=== PATIENT | female | born 1975 | race Caucasian/White ===

== ENCOUNTER 2018-12-30 22:37 | Inpatient (IN) | payer MEDICAID ==
[~2018-12-30] VITALS: Ht 170.2 cm; Wt 100.0 kg
[2018-12-30] MEDS ORDERED: BUME1TAB8 PO (23:15)
[2018-12-30] MEDS ORDERED: ALBU18HF2 INH (23:15)
[2018-12-30] MEDS ORDERED: POTA10CA44 PO (23:15)
[2018-12-30] MEDS ORDERED: ASPI81TA52 PO (23:15)
[2018-12-30] MEDS ORDERED: AMOX-580 PO (23:15)
[2018-12-30] MEDS ORDERED: GLIM4TAB PO (23:15)
[2018-12-30] MEDS ORDERED: ATOR80TA PO (23:15)
[2018-12-30] MEDS ORDERED: CLOP75TA35 PO (23:15)
[2018-12-30] MEDS ORDERED: HYDR-3965 PO (23:15)
[2018-12-30] MEDS ORDERED: LOSA25TA96 PO (23:15)
[2018-12-30] MEDS ORDERED: CARV-50 PO (23:15)
[2018-12-30] MEDS ORDERED: FURO-150 PO (23:15)
[2018-12-30] MEDS ORDERED: ISOS30TA9 PO (23:15)
[2018-12-30] MEDS ORDERED: OLAN2.5T3 PO (23:15)
[2018-12-30] MEDS ORDERED: DULO20CA50 PO (23:15)
[2018-12-30] MEDS ORDERED: normal saline 1000ML IV soln IVB ONE (23:25)
--- NOTE | 2018-12-30 23:35 | NUR ---
Dr Henderson stated pt could eat and drink and so she is eating a sandwiche now and really enjoying it
[2018-12-30] MEDS ORDERED: acetaminophen 325mg tablet PO PRN (23:55)
[2018-12-30] MEDS ORDERED: mag hydrox/Alum hydrox/simeth 30ml oral suspension PO PRN (23:55)
[2018-12-30] MEDS ORDERED: magnesium hydroxide 30ml (MOM) UD suspension PO PRN (23:55)
[2018-12-30] MEDS ORDERED: normal saline 1000ml 1,000 ML IV SCH (23:55)
[2018-12-30] MEDS ORDERED: morphine 2 MG/ML inj. syringe IV PRN ×2 (23:55)
[2018-12-30 23:57] LABS: PARTIAL THROMBOPLASTIN TIME 28 SECONDS (22-32)
[2018-12-30 23:59] LABS: ALANINE AMINOTRANSFERASE 36 U/L (12-78); ALBUMIN 1.6 G/DL (3.4-5.0); ALBUMIN/GLOBULIN RATIO 0.4 (1.1-1.5); ALKALINE PHOSPHATASE 118 IU/L (46-116); ANION GAP 14 (8-16); ASPARTATE AMINO TRANSFERASE 23 U/L (10-37); BILIRUBIN,TOTAL 0.2 MG/DL (0.1-1.0); BLOOD UREA NITROGEN 129 MG/DL (7-18); BUN/CREATININE RATIO 33.1 (6.6-38.0); CALCIUM 7.7 MG/DL (8.5-10.1); CHLORIDE 110 MMOL/L (99-107); GLUCOSE 106 MG/DL (70-104); POTASSIUM 5.2 MMOL/L (3.5-5.1); SODIUM 142 MMOL/L (135-145); TOTAL CARBON DIOXIDE 17.6 MMOL/L (24-32); TOTAL PROTEIN 5.4 G/DL (6.4-8.2); eGFR 12 ML/MIN
[2018-12-31] LABS: HEMATOCRIT 25.9 % (35.0-45.0); HEMOGLOBIN 8.8 g/dl (12.0-16.0); MEAN CORPUSCULAR VOLUME 88.4 FL (78-98); RED BLOOD COUNT 2.93 X10'6 (4.20-5.60); WHITE BLOOD COUNT 9.7 X10'3 (4.5-11.0)
[2018-12-31 00:02] LABS: BASOPHILS # (AUTO) 0.1 X10'3 (0-0.2); BASOPHILS % (AUTO) 1.1 % (0-1); EOSINOPHILS # (AUTO) 0.2 X10'3 (0-0.9); EOSINOPHILS % (AUTO) 2.3 % (0-6); LYMPHOCYTES # (AUTO) 1.8 X10'3 (1.1-4.8); LYMPHOCYTES % (AUTO) 18.5 % (21-51); MEAN CORPUSCULAR HEMOGLOBIN 30.1 PG (27.0-31.0); MEAN CORPUSCULAR HGB CONC 34.1 g/dL (33.0-36.5); MONOCYTES # (AUTO) 1.3 X10'3 (0-0.9); MONOCYTES % (AUTO) 13.5 % (2-12); NEUTROPHILS # (AUTO) 6.2 X10'3 (1.8-7.7); NEUTROPHILS % (AUTO) 64.6 % (42-75); PLATELET COUNT 459 X10'3 (140-440); RED CELL DISTRIBUTION WIDTH 13.7 % (11.5-14.5)
[2018-12-31] MEDS ORDERED: GABA800T11 PO (00:38)
[2018-12-31] MEDS ORDERED: ISOS30TA6 PO (00:38)
[2018-12-31] MEDS ORDERED: POTA-82 PO (00:39)
--- NOTE | 2018-12-31 01:20 | NUR ---
I have received report from Jeanne BROOKE RN and had the opportunity to ask questions. Awaiting pt arrival
[2018-12-31 01:26] LABS: TOTAL CELLS COUNTED 100
[2018-12-31 01:27] LABS: PLATELET ESTIMATE INCREASED
[2018-12-31 02:00] VITALS: BP 167/87
[2018-12-31 02:06] LABS: CLARITY,URINE SLIGHTLY CLOUDY (Clear); COLOR,URINE YELLOW (Yellow); GLUCOSE, URINE NEGATIVE (Neg); KETONES,URINE NEGATIVE (Neg); LEUKOCYTE ESTERASE ,URINE TRACE (Neg); NITRITES, URINE NEGATIVE (Neg); OCCULT BLOOD,URINE LARGE (Neg); PH,URINE 7.5 (4.8-8.0); PROTEIN,URINE >=300 mg/dl (Neg); UROBILINOGEN,URINE 0.2 E.U/dL (0.2-1.0)
[2018-12-31 02:11] LABS: UA COLLECTION TYPE FOLEY CATH
[2018-12-31 02:35] LABS: BACTERIA,URINE FEW /HPF (Neg); MUCUS STRANDS NONE SEEN /LPF (Neg); SQUAMOUS EPITHELIAL CELL,UR NONE SEEN /LPF (FEW); WBC,URINE 20-30 /HPF (0-4)
--- NOTE | 2018-12-31 03:12 | NUR ---
Dr. Keane called. Hyperglycemic/hypoglycemic protocol ordered. Informed MD about . new orders given. will continue to monitor.
[2018-12-31] MEDS ORDERED: dextrose 50%-water 50ml dispensing syringe IV PRN ×2 (03:25)
[2018-12-31] MEDS ORDERED: dextrose ORAL solution 15 GM/59 ML bottle PO PRN ×2 (03:25)
[2018-12-31] MEDS ORDERED: glucagon, human recombinant 1mg kit SUBCUT PRN (03:25)
[2018-12-31] MEDS ORDERED: MESSAGE TO PHARMACY PO ONE (03:25)
[2018-12-31] MEDS ORDERED: furosemide 20 MG/2 ML vial IV SCH (03:30)
[2018-12-31] MEDS: HYDROcodone/acetaminophen 10/325mg tab PO PRN ×3 (03:51→21:55)
[2018-12-31] MEDS ORDERED: OLANZapine 2.5MG tablet PO PRN (05:20)
[2018-12-31] MEDS ORDERED: HYDROcodone/acetaminophen 5mg/325mg tablet PO PRN (05:20)
[2018-12-31] MEDS ORDERED: albuterol 2.5 MG/3 ML nebule NEB PRN (05:20)
[2018-12-31] MEDS: normal saline 1000ml 1,000 ML IV SCH ×3 (05:32→22:43)
--- NOTE | 2018-12-31 05:34 | NUR ---
Dr. Keane rounded on the pt and verbalized new orders. will continue to monitor
[2018-12-31 05:40] LABS: BASOPHILS # (AUTO) 0.1 X10'3 (0-0.2); BASOPHILS % (AUTO) 1.3 % (0-1); EOSINOPHILS # (AUTO) 0.3 X10'3 (0-0.9); EOSINOPHILS % (AUTO) 2.9 % (0-6); HEMATOCRIT 23.9 % (35.0-45.0); HEMOGLOBIN 7.9 g/dl (12.0-16.0); LYMPHOCYTES # (AUTO) 1.6 X10'3 (1.1-4.8); LYMPHOCYTES % (AUTO) 17.5 % (21-51); MEAN CORPUSCULAR HEMOGLOBIN 29.8 PG (27.0-31.0); MEAN CORPUSCULAR HGB CONC 33.3 g/dL (33.0-36.5); MEAN CORPUSCULAR VOLUME 89.6 FL (78-98); MEAN PLATELET VOLUME 7.3 FL (7.4-10.4); MONOCYTES # (AUTO) 1.7 X10'3 (0-0.9); MONOCYTES % (AUTO) 18.5 % (2-12); NEUTROPHILS # (AUTO) 5.4 X10'3 (1.8-7.7); NEUTROPHILS % (AUTO) 59.8 % (42-75); PLATELET COUNT 436 X10'3 (140-440); RED BLOOD COUNT 2.67 X10'6 (4.20-5.60); WHITE BLOOD COUNT 9.1 X10'3 (4.5-11.0)
[2018-12-31 05:49] LABS: ALBUMIN 1.5 G/DL (3.4-5.0); ANION GAP 15 (8-16); BLOOD UREA NITROGEN 135 MG/DL (7-18); BUN/CREATININE RATIO 33.4 (6.6-38.0); CALCIUM 7.8 MG/DL (8.5-10.1); CHLORIDE 111 MMOL/L (99-107); CREATININE 4.04 MG/DL (0.40-0.90); GLUCOSE 177 MG/DL (70-104); SODIUM 142 MMOL/L (135-145); TOTAL CARBON DIOXIDE 15.9 MMOL/L (24-32); eGFR 12 ML/MIN
--- NOTE | 2018-12-31 06:20 | NUR ---
Problems reprioritized. Patient report given, questions answered & plan of care reviewed with Sera BENSON.
--- NOTE | 2018-12-31 06:56 | NUR ---
Patient in room [facility]. I have received report from Maria Luz BENSON and had the opportunity to ask questions and assume patient care.
[2018-12-31] MEDS: losartan 25mg tablet PO SCH (07:47)
[2018-12-31] MEDS: carVEDilol 12.5mg tablet PO SCH ×2 (07:47→21:43)
[2018-12-31] MEDS: duloxetine 20mg capsule.DR PO SCH (07:48)
[2018-12-31] MEDS: aspirin 81mg tablet.DR PO SCH (07:48)
[2018-12-31] MEDS: isosorbide mononitrate 30mg tab.SR.24H PO SCH (07:48)
[2018-12-31] MEDS: clopidogrel 75mg tablet PO SCH (07:48)
[2018-12-31] MEDS: heparin, porcine 5000 units/ml vial SQ SCH ×2 (07:50→21:46)
[2018-12-31 08:00] VITALS: BP_SYST 136; BP_SYST 139; BP_SYST 141; BP_DIAS 65; BP_DIAS 75; BP_DIAS 76
[2018-12-31] MEDS ORDERED: gabapentin 400mg capsule PO SCH (08:00)
[2018-12-31] MEDS: ondansetron/PF 4mg/2ml inj IV PRN (08:51)
[2018-12-31 11:00] VITALS: BP 141/76
[2018-12-31 11:28] LABS: CLARITY,URINE SLIGHTLY CLOUDY (Clear); COLOR,URINE YELLOW (Yellow); GLUCOSE, URINE NEGATIVE (Neg); KETONES,URINE NEGATIVE (Neg); LEUKOCYTE ESTERASE ,URINE TRACE (Neg); NITRITES, URINE NEGATIVE (Neg); OCCULT BLOOD,URINE LARGE (Neg); PROTEIN,URINE >=300 mg/dl (Neg); UROBILINOGEN,URINE 0.2 E.U/dL (0.2-1.0)
[2018-12-31 11:29] LABS: UA COLLECTION TYPE FOLEY CATH
[2018-12-31 11:38] LABS: WBC,URINE TNTC /HPF (0-4)
[2018-12-31 11:42] LABS: BACTERIA,URINE 2+ /HPF (Neg); MUCUS STRANDS NONE SEEN /LPF (Neg); SQUAMOUS EPITHELIAL CELL,UR FEW /LPF (FEW)
[2018-12-31 11:43] LABS: CELLULAR CAST 0-4 /LPF (NEGATIVE)
[2018-12-31 12:05] LABS: UA EOSINOPHILS FEW EOS /HPF
[2018-12-31 12:13] LABS: TOTAL PROTEIN,URINE RANDOM 2183.6 MG/DL
[2018-12-31] MEDS: acetaminophen 325mg tablet PO PRN ×2 (12:24→23:58)
--- NOTE | 2018-12-31 15:04 | NUR ---
DM Consult: Pt admit w/ acute renal failure, proteinuria, volume depletion hx nausea/vomiting prior to admit. Noted to have nausea today. Likely DM nephropathy per MD note; A1C 7.4. Will need DM ed once stable prior to d/c. Addendum: 12/31/18 at [address] Amended: Links added.
[2018-12-31] MEDS: gabapentin 100mg capsule PO SCH ×2 (15:48→23:53)
[2018-12-31] MEDS: HYDROcodone/acetaminophen 5mg/325mg tablet PO PRN (17:59)
--- NOTE | 2018-12-31 18:30 | NUR ---
Patient in room [facility]. I have received report from EVY and had the opportunity to ask questions and assume patient care.
--- NOTE | 2018-12-31 18:35 | NUR ---
Problems reprioritized. Patient report given, questions answered & plan of care reviewed with Rosemarie BENSON.
[2018-12-31] MEDS: insulin Lispro (HumaLOG) vial - multi-dose SQ SCH (18:59)
[2018-12-31 19:15] VITALS: BP 155/83
[2018-12-31] MEDS: insulin glargine (Lantus) pen - multi-dose SQ SCH (21:34)
[2018-12-31] MEDS: atorvastatin 20mg tablet PO SCH (21:44)
[2019-01-01] VITALS: BP 122/66
[2019-01-01] MEDS: HYDROcodone/acetaminophen 10/325mg tab PO PRN ×2 (04:27→21:45)
[2019-01-01 06:34] LABS: BASOPHILS # (AUTO) 0.1 X10'3 (0-0.2); BASOPHILS % (AUTO) 1.2 % (0-1); EOSINOPHILS # (AUTO) 0.4 X10'3 (0-0.9); EOSINOPHILS % (AUTO) 3.7 % (0-6); HEMATOCRIT 24.7 % (35.0-45.0); HEMOGLOBIN 8.4 g/dl (12.0-16.0); LYMPHOCYTES # (AUTO) 1.9 X10'3 (1.1-4.8); LYMPHOCYTES % (AUTO) 19.8 % (21-51); MEAN CORPUSCULAR HEMOGLOBIN 30.3 PG (27.0-31.0); MEAN CORPUSCULAR HGB CONC 33.9 g/dL (33.0-36.5); MEAN CORPUSCULAR VOLUME 89.5 FL (78-98); MEAN PLATELET VOLUME 7.2 FL (7.4-10.4); MONOCYTES # (AUTO) 2.1 X10'3 (0-0.9); MONOCYTES % (AUTO) 22.6 % (2-12); NEUTROPHILS % (AUTO) 52.7 % (42-75); PLATELET COUNT 462 X10'3 (140-440); RED BLOOD COUNT 2.76 X10'6 (4.20-5.60); RED CELL DISTRIBUTION WIDTH 14.2 % (11.5-14.5); WHITE BLOOD COUNT 9.5 X10'3 (4.5-11.0)
--- NOTE | 2019-01-01 06:38 | NUR ---
Problems reprioritized. Patient report given, questions answered & plan of care reviewed with CELESTE.
[2019-01-01 06:40] LABS: ALBUMIN 1.6 G/DL (3.4-5.0); ANION GAP 13 (8-16); BLOOD UREA NITROGEN 130 MG/DL (7-18); BUN/CREATININE RATIO 29.7 (6.6-38.0); CALCIUM 8.1 MG/DL (8.5-10.1); CHLORIDE 111 MMOL/L (99-107); CREATININE 4.38 MG/DL (0.40-0.90); GLUCOSE 100 MG/DL (70-104); POTASSIUM 5.4 MMOL/L (3.5-5.1); SODIUM 141 MMOL/L (135-145); TOTAL CARBON DIOXIDE 16.8 MMOL/L (24-32); eGFR 11 ML/MIN
--- NOTE | 2019-01-01 06:57 | NUR ---
Patient in room [facility]. I have received report from Naomi BENSON and had the opportunity to ask questions and assume patient care.
[2019-01-01] MEDS: clopidogrel 75mg tablet PO SCH (07:23)
[2019-01-01] MEDS: duloxetine 20mg capsule.DR PO SCH (07:23)
[2019-01-01] MEDS: isosorbide mononitrate 30mg tab.SR.24H PO SCH (07:23)
[2019-01-01] MEDS: aspirin 81mg tablet.DR PO SCH (07:23)
[2019-01-01] MEDS: gabapentin 100mg capsule PO SCH ×2 (07:24→16:40)
[2019-01-01] MEDS: heparin, porcine 5000 units/ml vial SQ SCH ×2 (07:24→21:39)
[2019-01-01] MEDS: losartan 25mg tablet PO SCH (07:24)
[2019-01-01] MEDS: carVEDilol 12.5mg tablet PO SCH ×2 (07:24→21:38)
[2019-01-01] MEDS: acetaminophen 325mg tablet PO PRN (07:36)
[2019-01-01 08:00] VITALS: BP_SYST 112; BP_SYST 139; BP_SYST 154; BP_DIAS 50; BP_DIAS 77; BP_DIAS 83
[2019-01-01] MEDS ORDERED: sodium polystyrene sulfonate 15gm/60ml oral suspension PO ONE ×2 (08:00→10:15)
[2019-01-01] MEDS: insulin Lispro (HumaLOG) vial - multi-dose SQ SCH ×3 (08:45→18:33)
[2019-01-01 09:22] LABS: PLATELET ESTIMATE INCREASED; TOTAL CELLS COUNTED 100; TOXIC VACUOLATION 1+
[2019-01-01] MEDS: normal saline 1000ml 1,000 ML IV SCH ×2 (10:30→23:00)
[2019-01-01 11:00] VITALS: BP 113/61
[2019-01-01] MEDS: ondansetron/PF 4mg/2ml inj IV PRN (12:01)
--- NOTE | 2019-01-01 15:05 | NUR ---
F/u: Pt seen by CAMDEN for written/verbal DM ed w/ RD contact information provided. Pt declined verbal ed review. Addendum: 01/01/19 at [address] Amended: Links added.
[2019-01-01 18:00] VITALS: BP 174/90
--- NOTE | 2019-01-01 18:26 | NUR ---
Problems reprioritized. Patient report given, questions answered & plan of care reviewed with Shaq BENSON.
--- NOTE | 2019-01-01 18:27 | NUR ---
Patient in room [facility]. I have received report from KELLEY Zamora and had the opportunity to ask questions and assume patient care.
[2019-01-01 20:00] VITALS: BP_SYST 153; BP_SYST 161; BP_SYST 172; BP_DIAS 80; BP_DIAS 81; BP_DIAS 84
[2019-01-01] MEDS: atorvastatin 20mg tablet PO SCH (21:39)
[2019-01-01] MEDS: insulin glargine (Lantus) pen - multi-dose SQ SCH (21:44)
[2019-01-02] VITALS (7 sets, daily range): BP systolic 128–172; BP diastolic 57–90
[2019-01-02] MEDS: acetaminophen 325mg tablet PO PRN ×2 (01:06→15:28)
[2019-01-02 04:59] LABS: BASOPHILS # (AUTO) 0.1 X10'3 (0-0.2); BASOPHILS % (AUTO) 1.3 % (0-1); EOSINOPHILS # (AUTO) 0.3 X10'3 (0-0.9); EOSINOPHILS % (AUTO) 4.1 % (0-6); HEMOGLOBIN 7.1 g/dl (12.0-16.0); LYMPHOCYTES # (AUTO) 1.7 X10'3 (1.1-4.8); MEAN CORPUSCULAR HEMOGLOBIN 30.1 PG (27.0-31.0); MEAN CORPUSCULAR HGB CONC 33.8 g/dL (33.0-36.5); MEAN PLATELET VOLUME 7.3 FL (7.4-10.4); MONOCYTES # (AUTO) 1.4 X10'3 (0-0.9); MONOCYTES % (AUTO) 19.1 % (2-12); NEUTROPHILS # (AUTO) 3.7 X10'3 (1.8-7.7); NEUTROPHILS % (AUTO) 51.5 % (42-75); PLATELET COUNT 398 X10'3 (140-440); RED BLOOD COUNT 2.37 X10'6 (4.20-5.60); RED CELL DISTRIBUTION WIDTH 14.2 % (11.5-14.5); WHITE BLOOD COUNT 7.2 X10'3 (4.5-11.0)
[2019-01-02 05:04] LABS: ALBUMIN 1.3 G/DL (3.4-5.0); ANION GAP 14 (8-16); BLOOD UREA NITROGEN 128 MG/DL (7-18); BUN/CREATININE RATIO 26.9 (6.6-38.0); CALCIUM 7.2 MG/DL (8.5-10.1); CHLORIDE 113 MMOL/L (99-107); CREATININE 4.75 MG/DL (0.40-0.90); GLUCOSE 135 MG/DL (70-104); SODIUM 143 MMOL/L (135-145); TOTAL CARBON DIOXIDE 15.7 MMOL/L (24-32); eGFR 10 ML/MIN
[2019-01-02 05:07] LABS: HEMATOCRIT 21.1 % (35.0-45.0)
--- NOTE | 2019-01-02 06:07 | NUR ---
Problems reprioritized. Patient report given, questions answered & plan of care reviewed with KELELY Garnett.
--- NOTE | 2019-01-02 06:15 | NUR ---
Patient in room [facility]. I have received report from and had the opportunity to ask questions and assume patient care. Addendum: 01/02/19 at 0640 by Mariola Soares RN From KELLEY New
[2019-01-02 07:07] LABS: PLATELET ESTIMATE NORMAL; TOTAL CELLS COUNTED 100
[2019-01-02] MEDS: normal saline 1000ml 1,000 ML IV SCH ×2 (07:56→17:33)
[2019-01-02] MEDS: carVEDilol 12.5mg tablet PO SCH ×2 (07:58→20:27)
[2019-01-02] MEDS: duloxetine 20mg capsule.DR PO SCH (07:58)
[2019-01-02] MEDS: gabapentin 100mg capsule PO SCH ×3 (07:58→15:26)
[2019-01-02] MEDS: isosorbide mononitrate 30mg tab.SR.24H PO SCH (07:58)
[2019-01-02] MEDS: clopidogrel 75mg tablet PO SCH (07:58)
[2019-01-02] MEDS: aspirin 81mg tablet.DR PO SCH (07:58)
[2019-01-02] MEDS: heparin, porcine 5000 units/ml vial SQ SCH ×2 (07:59→20:28)
[2019-01-02] MEDS: HYDROcodone/acetaminophen 5mg/325mg tablet PO PRN (08:03)
[2019-01-02] MEDS: insulin Lispro (HumaLOG) vial - multi-dose SQ SCH ×3 (08:51→18:54)
[2019-01-02] MEDS: clindamycin 300mg/D5W 50mL 50 ML IV SCH ×2 (13:40→20:24)
--- NOTE | 2019-01-02 18:21 | NUR ---
Problems reprioritized. Patient report given, questions answered & plan of care reviewed with KELLEY New.
--- NOTE | 2019-01-02 18:22 | NUR ---
Patient in room [facility]. I have received report from KELLEY Garnett and had the opportunity to ask questions and assume patient care.
[2019-01-02] MEDS: atorvastatin 20mg tablet PO SCH (20:26)
[2019-01-02] MEDS: insulin glargine (Lantus) pen - multi-dose SQ SCH (20:37)
[2019-01-02] MEDS: HYDROcodone/acetaminophen 10/325mg tab PO PRN (22:25)
[2019-01-03 00:24] VITALS: BP 133/69
[2019-01-03] MEDS: clindamycin 300mg/D5W 50mL 50 ML IV SCH ×4 (01:08→21:06)
[2019-01-03] MEDS: ondansetron/PF 4mg/2ml inj IV PRN (01:08)
[2019-01-03] MEDS: normal saline 1000ml 1,000 ML IV SCH ×2 (04:00→15:22)
[2019-01-03 05:01] LABS: BASOPHILS # (AUTO) 0.1 X10'3 (0-0.2); BASOPHILS % (AUTO) 1.3 % (0-1); EOSINOPHILS # (AUTO) 0.4 X10'3 (0-0.9); HEMATOCRIT 22.3 % (35.0-45.0); HEMOGLOBIN 7.4 g/dl (12.0-16.0); LYMPHOCYTES # (AUTO) 1.7 X10'3 (1.1-4.8); LYMPHOCYTES % (AUTO) 23.8 % (21-51); MEAN CORPUSCULAR HEMOGLOBIN 29.7 PG (27.0-31.0); MEAN CORPUSCULAR HGB CONC 33.2 g/dL (33.0-36.5); MEAN CORPUSCULAR VOLUME 89.4 FL (78-98); MEAN PLATELET VOLUME 7.2 FL (7.4-10.4); MONOCYTES # (AUTO) 1.5 X10'3 (0-0.9); NEUTROPHILS # (AUTO) 3.5 X10'3 (1.8-7.7); NEUTROPHILS % (AUTO) 48.9 % (42-75); PLATELET COUNT 416 X10'3 (140-440); RED BLOOD COUNT 2.49 X10'6 (4.20-5.60); RED CELL DISTRIBUTION WIDTH 14.1 % (11.5-14.5); WHITE BLOOD COUNT 7.1 X10'3 (4.5-11.0)
[2019-01-03 05:24] LABS: ALBUMIN 1.2 G/DL (3.4-5.0); ANION GAP 14 (8-16); BLOOD UREA NITROGEN 120 MG/DL (7-18); CALCIUM 7.4 MG/DL (8.5-10.1); CHLORIDE 113 MMOL/L (99-107); CREATININE 4.44 MG/DL (0.40-0.90); GLUCOSE 86 MG/DL (70-104); POTASSIUM 5.1 MMOL/L (3.5-5.1); SODIUM 142 MMOL/L (135-145); TOTAL CARBON DIOXIDE 15.1 MMOL/L (24-32); eGFR 11 ML/MIN
--- NOTE | 2019-01-03 06:00 | NUR ---
Patient in room [facility]. I have received report from DUTCH BENSON and had the opportunity to ask questions and assume patient care.
--- NOTE | 2019-01-03 06:25 | NUR ---
Problems reprioritized. Patient report given, questions answered & plan of care reviewed with KELLEY Lisa.
[2019-01-03 06:53] LABS: TOTAL CELLS COUNTED 100
[2019-01-03 06:54] LABS: PLATELET ESTIMATE NORMAL; POLYCHROMASIA FEW
[2019-01-03 07:00] VITALS: BP 116/62
[2019-01-03] MEDS: carVEDilol 12.5mg tablet PO SCH ×2 (07:54→20:08)
[2019-01-03] MEDS: aspirin 81mg tablet.DR PO SCH (07:54)
[2019-01-03] MEDS: duloxetine 20mg capsule.DR PO SCH (07:54)
[2019-01-03] MEDS: isosorbide mononitrate 30mg tab.SR.24H PO SCH (07:55)
[2019-01-03] MEDS: gabapentin 100mg capsule PO SCH ×3 (07:55→16:00)
[2019-01-03] MEDS: clopidogrel 75mg tablet PO SCH (07:55)
[2019-01-03] MEDS: heparin, porcine 5000 units/ml vial SQ SCH ×2 (07:56→20:08)
--- NOTE | 2019-01-03 08:00 | NUR ---
PT REFUSED DOING HER ORTHOSTATIC VITALS THIS MORNING. PT DOES NOT WANT TO DO IT.
[2019-01-03] MEDS: acetaminophen 325mg tablet PO PRN ×2 (09:11→17:44)
[2019-01-03 11:00] VITALS: BP 161/84
--- NOTE | 2019-01-03 13:19 | NUR ---
DIABETIC FOOT CARE EDUCATION PROVIDED BY WOUND CARE * Wash your feet daily with lukewarm water and soap. * Dry your feet well, especially between the toes. * Keep the skin moisturized with lotion, but do not apply it between the toes. * Check your feet for blisters, cuts or sores. * Use an emery board to shape your toenails even with the ends of your toes. * Change daily into clean, soft socks or stockings, not too big or too small. * Keep your feet warm and dry. * Preferably wear special padded socks and shoes that fit well. * Never walk barefoot indoors or outdoors. * Examine your shoes everyday for cracks, susan, nails or anything that could hurt your feet. * Tell your doctor if you find any of these problems or have any concerns after examining your feet. Addendum: 01/03/19 at 1319 by Parris Reyes RN Amended: Links added.
--- NOTE | 2019-01-03 14:45 | NUR ---
PT VOMITED AFTER LUNCH TODAY. NOT MEASURABLE IT WAS ALL OVER HER AND HER BEDDING
--- NOTE | 2019-01-03 15:44 | NUR ---
Wound care provided to right heel per wound care orders. Pt tolerated the procedure. Minimal bloody drainage noted upon removal of old dressing. Will continue to monitor.
--- NOTE | 2019-01-03 16:49 | NUR ---
Student Medication Administration: For this medication-pass time frame, all medication were reviewed, dispensed, administered and documented per hospital policy by Amparo Student Nurse.
--- NOTE | 2019-01-03 17:21 | NUR ---
PT HAS AN OCCULT STOOL ORDERED SINCE 01-02. SHE HAD NOT HAD A BM ON MY SHIFT. UNABLE TO COLLECT
--- NOTE | 2019-01-03 17:50 | NUR ---
WOUND CARE DONE ON RIGHT HEEL
--- NOTE | 2019-01-03 17:53 | NUR ---
Student documentation: I have reviewed interventions, assessments performed and documented by Amparo Student Nurse.
[2019-01-03 18:00] VITALS: BP 171/88
--- NOTE | 2019-01-03 18:07 | NUR ---
Problems reprioritized. Patient report given, questions answered & plan of care reviewed with PRUDENCE RN.
[2019-01-03 18:12] LABS: % IRON SATURATION 17 % (11-46); IRON 27 UG/DL (49-151); TOTAL IRON BINDING CAPACITY 163 UG/DL (259-388)
[2019-01-03 20:00] VITALS: BP 171/88
[2019-01-03] MEDS: insulin Lispro (HumaLOG) vial - multi-dose SQ SCH (20:06)
[2019-01-03] MEDS: lactobacillus rhamnosus 10,000 MMU CELLS/CAPSULE PO SCH (20:08)
--- NOTE | 2019-01-03 20:51 | NUR ---
Checked on pt for her prn breathing tx's and she states that she has no problems breathing, is on room air and wishes we would just leave her alone. She is requesting that we please take her off of our respiratory list. I will message Dr to see about getting these orders d/c
[2019-01-03] MEDS: HYDROcodone/acetaminophen 10/325mg tab PO PRN (21:06)
[2019-01-03] MEDS: atorvastatin 20mg tablet PO SCH (21:06)
[2019-01-03] MEDS: insulin glargine (Lantus) pen - multi-dose SQ SCH (22:17)
[2019-01-04] VITALS (12 sets, daily range): BP systolic 141–182; BP diastolic 72–100
[2019-01-04] MEDS: normal saline 1000ml 1,000 ML IV SCH ×3 (01:25→21:42)
[2019-01-04] MEDS: clindamycin 300mg/D5W 50mL 50 ML IV SCH ×4 (01:27→21:32)
[2019-01-04] MEDS: ondansetron/PF 4mg/2ml inj IV PRN (05:10)
[2019-01-04 05:24] LABS: BASOPHILS # (AUTO) 0.1 X10'3 (0-0.2); BASOPHILS % (AUTO) 1.3 % (0-1); EOSINOPHILS # (AUTO) 0.4 X10'3 (0-0.9); EOSINOPHILS % (AUTO) 5.5 % (0-6); LYMPHOCYTES # (AUTO) 1.8 X10'3 (1.1-4.8); LYMPHOCYTES % (AUTO) 26.1 % (21-51); MEAN CORPUSCULAR HEMOGLOBIN 30.3 PG (27.0-31.0); MEAN CORPUSCULAR HGB CONC 33.8 g/dL (33.0-36.5); MEAN CORPUSCULAR VOLUME 89.7 FL (78-98); MEAN PLATELET VOLUME 7.1 FL (7.4-10.4); MONOCYTES # (AUTO) 1.4 X10'3 (0-0.9); MONOCYTES % (AUTO) 20.4 % (2-12); NEUTROPHILS # (AUTO) 3.1 X10'3 (1.8-7.7); NEUTROPHILS % (AUTO) 46.7 % (42-75); PLATELET COUNT 423 X10'3 (140-440); RED CELL DISTRIBUTION WIDTH 14.1 % (11.5-14.5); WHITE BLOOD COUNT 6.7 X10'3 (4.5-11.0)
[2019-01-04 05:50] LABS: ALANINE AMINOTRANSFERASE 18 U/L (12-78); ALBUMIN 1.1 G/DL (3.4-5.0); ALBUMIN/GLOBULIN RATIO 0.3 (1.1-1.5); ALKALINE PHOSPHATASE 110 IU/L (46-116); ANION GAP 13 (8-16); ASPARTATE AMINO TRANSFERASE 14 U/L (10-37); BILIRUBIN,TOTAL 0.1 MG/DL (0.1-1.0); BLOOD UREA NITROGEN 118 MG/DL (7-18); BUN/CREATININE RATIO 27.8 (6.6-38.0); CALCIUM 7.3 MG/DL (8.5-10.1); CHLORIDE 114 MMOL/L (99-107); CREATININE 4.25 MG/DL (0.40-0.90); GLUCOSE 112 MG/DL (70-104); HEMATOCRIT 20.7 % (35.0-45.0); MAGNESIUM 2.3 MG/DL (1.5-2.4); PHOSPHORUS 10.3 MG/DL (2.3-4.5); SODIUM 143 MMOL/L (135-145); TOTAL CARBON DIOXIDE 16.4 MMOL/L (24-32); TOTAL PROTEIN 4.6 G/DL (6.4-8.2); eGFR 11 ML/MIN
--- NOTE | 2019-01-04 06:30 | NUR ---
Patient refused night time orthostatics vital signs. Addendum: 01/04/19 at 0631 by Sara Paniagua RN Amended: Links added.
--- NOTE | 2019-01-04 06:31 | NUR ---
Problems reprioritized. Patient report given, questions answered & plan of care reviewed with Maria L BENSON.Patient slept well last night. She compained of nausea and medication was administered as ordered.
[2019-01-04 06:59] LABS: TOTAL CELLS COUNTED 100
[2019-01-04 07:00] LABS: PLATELET ESTIMATE NORMAL
[2019-01-04 07:01] LABS: POLYCHROMASIA FEW
[2019-01-04] MEDS: clopidogrel 75mg tablet PO SCH (07:33)
[2019-01-04] MEDS: aspirin 81mg tablet.DR PO SCH ×2 (07:33→08:00)
[2019-01-04] MEDS: duloxetine 20mg capsule.DR PO SCH (07:33)
[2019-01-04] MEDS: isosorbide mononitrate 30mg tab.SR.24H PO SCH (07:34)
[2019-01-04] MEDS: gabapentin 300mg capsule PO SCH (07:34)
[2019-01-04] MEDS: carVEDilol 12.5mg tablet PO SCH ×2 (07:34→19:04)
[2019-01-04] MEDS: lactobacillus rhamnosus 10,000 MMU CELLS/CAPSULE PO SCH ×2 (07:34→21:39)
[2019-01-04] MEDS: heparin, porcine 5000 units/ml vial SQ SCH ×2 (08:00→21:39)
[2019-01-04] MEDS ORDERED: heparin 1,000unit/ml 10ml vial 10 ML IV ONE (11:20)
[2019-01-04] MEDS ORDERED: normal saline 1000ml 250 ML IV PRN (11:20)
[2019-01-04] MEDS ORDERED: epoetin 20,000 units/ml inj IV ONE (11:20)
[2019-01-04] MEDS ORDERED: heparin 1,000 units/ml 10ml inj HE ONE ×2 (11:25)
--- NOTE | 2019-01-04 12:00 | NUR ---
Patient in room [facility]. I have received report from Yanet BOYD and had the opportunity to ask questions and assume patient care.
[2019-01-04] MEDS: lactulose 20gm/30ml cup PO SCH ×3 (13:04→20:00)
[2019-01-04] MEDS ORDERED: fentaNYL/PF 50MCG/1 ML 2ML syringe IV PRN (13:30)
[2019-01-04] MEDS ORDERED: LIDOcaine 1% (10mg/ml)w/preservative injection 20ml MDV SQ ONE (13:30)
[2019-01-04] MEDS ORDERED: midazolam 2 mg/2 ml injection IV PRN (13:30)
[2019-01-04] MEDS ORDERED: heparin 1,000 units/ml 10ml inj ICATH ONE (13:30)
[2019-01-04] MEDS ORDERED: LIDOcaine 1%/PF 5ML 10 MG/ML VIAL ONE (13:32)
[2019-01-04] MEDS ORDERED: fentaNYL/PF 50MCG/1 ML 2ML syringe ONE ×2 (13:32→14:04)
[2019-01-04] MEDS ORDERED: heparin 1,000unit/ml 10ml vial 10 ML ONE (13:32)
--- NOTE | 2019-01-04 14:01 | NUR ---
pt was pleasantly non compliant in taking her lactulose.
[2019-01-04] MEDS ORDERED: ondansetron/PF 4mg/2ml inj ONE (14:33)
--- NOTE | 2019-01-04 14:33 | NUR ---
PT REPEATEDLY REFUSES ORTHOSTATIC V/S
--- NOTE | 2019-01-04 16:35 | NUR ---
Initial: Pt admit w/ intractable N/V, YUSUF not improving now requiring HD starting today per MD note. MD agrees for phosphorus binder given Phos 10.3 today. Pt PO 100% meals now decreased s/p TDC placement w/ nausea noted. LBM 01/01. Will continue to monitor for additional protein needs on HD. Rec: 1. continue carb controlled/renal diet per MD 2. phosphorus binder per MD 3. monitor for ONS needs on HD 4. wt w/ HD Addendum: 01/04/19 at [address] Amended: Links added.
--- NOTE | 2019-01-04 17:22 | NUR ---
Student documentation: I have reviewed all interventions, assessments performed and documented by Warren CHO.
--- NOTE | 2019-01-04 17:37 | NUR ---
pt received one unit of blood. the unit was 500 mls, not 300ml.
--- NOTE | 2019-01-04 17:54 | NUR ---
PT STILL REFUSING ORTHOSTATIC V/S THIS MORNING
--- NOTE | 2019-01-04 18:13 | NUR ---
Problems reprioritized. Patient report given, questions answered & plan of care reviewed with SUGEY BENSON.
[2019-01-04] MEDS: HYDROcodone/acetaminophen 10/325mg tab PO PRN ×2 (19:04→23:27)
--- NOTE | 2019-01-04 19:31 | NUR ---
Patient in room [facility]. I have received report from KELLEY Lisa and had the opportunity to ask questions and assume patient care. Addendum: 01/04/19 at 1931 by Rose Campbell RN Amended: Links added.
[2019-01-04] MEDS: sevelamer carbonate 0.8gm powder pkt PO SCH (20:00)
[2019-01-04] MEDS: atorvastatin 20mg tablet PO SCH (21:00)
[2019-01-04] MEDS: insulin glargine (Lantus) pen - multi-dose SQ SCH (21:30)
[2019-01-04] MEDS: bisacodyl 10mg suppository rectal RC PRN (22:30)
[2019-01-05] VITALS (7 sets, daily range): BP systolic 150–186; BP diastolic 77–104
[2019-01-05] MEDS: ondansetron/PF 4mg/2ml inj IV PRN ×3 (01:20→20:31)
[2019-01-05] MEDS: lactulose 20gm/30ml cup PO SCH ×4 (02:00→20:00)
[2019-01-05] MEDS: clindamycin 300mg/D5W 50mL 50 ML IV SCH ×4 (02:18→21:00)
--- NOTE | 2019-01-05 04:17 | NUR ---
patient had dialysis last night and took out 2L of fluids. Pt appears to be weak and c/o pain to her Rt. TDC which was bleeding profusely. Had to changed dressing and is not intact and clean. Pt did refuse her medications last night stated that shes too weak to swallow her pills. Pt having her menses today and was bleeding as well with some clots. Resting comfortably at this time.
[2019-01-05] MEDS ORDERED: gelatin sponge, absorbable (Gelfoam-100 compressed) sponge TP ONE (04:55)
--- NOTE | 2019-01-05 05:17 | NUR ---
noted more bleeding in her TDC site, pressure dressing applied. Intencivist called with order to put gelfoam and ordered labs. Pt VS stable
[2019-01-05] MEDS: normal saline 1000ml 1,000 ML IV SCH ×2 (05:30→14:48)
[2019-01-05] MEDS: isosorbide mononitrate 30mg tab.SR.24H PO SCH (06:11)
[2019-01-05] MEDS: carVEDilol 12.5mg tablet PO SCH ×2 (06:11→21:17)
--- NOTE | 2019-01-05 06:12 | NUR ---
intencivist April came in to see patient and ordered to given patients blood pressure medications at this time.
[2019-01-05 06:32] LABS: BASOPHILS # (AUTO) 0.1 X10'3 (0-0.2); BASOPHILS % (AUTO) 1.1 % (0-1); EOSINOPHILS # (AUTO) 0.3 X10'3 (0-0.9); EOSINOPHILS % (AUTO) 3.6 % (0-6); HEMATOCRIT 27.3 % (35.0-45.0); HEMOGLOBIN 9.3 g/dl (12.0-16.0); LYMPHOCYTES # (AUTO) 1.2 X10'3 (1.1-4.8); LYMPHOCYTES % (AUTO) 13.6 % (21-51); MEAN CORPUSCULAR HEMOGLOBIN 30.4 PG (27.0-31.0); MEAN CORPUSCULAR HGB CONC 34.1 g/dL (33.0-36.5); MEAN CORPUSCULAR VOLUME 89.1 FL (78-98); MONOCYTES # (AUTO) 1.3 X10'3 (0-0.9); MONOCYTES % (AUTO) 14.7 % (2-12); NEUTROPHILS # (AUTO) 5.8 X10'3 (1.8-7.7); PLATELET COUNT 494 X10'3 (140-440); RED BLOOD COUNT 3.07 X10'6 (4.20-5.60); RED CELL DISTRIBUTION WIDTH 14.1 % (11.5-14.5); WHITE BLOOD COUNT 8.6 X10'3 (4.5-11.0)
--- NOTE | 2019-01-05 06:37 | NUR ---
Problems reprioritized. Patient report given, questions answered & plan of care reviewed with KELLEY Bailey. Addendum: 01/05/19 at 0638 by Rose Campbell RN Amended: Links added.
[2019-01-05 06:41] LABS: PARTIAL THROMBOPLASTIN TIME 30 SECONDS (22-32)
[2019-01-05 06:52] LABS: ALANINE AMINOTRANSFERASE 20 U/L (12-78); ALBUMIN 1.3 G/DL (3.4-5.0); ALBUMIN/GLOBULIN RATIO 0.3 (1.1-1.5); ALKALINE PHOSPHATASE 130 IU/L (46-116); ANION GAP 10 (8-16); ASPARTATE AMINO TRANSFERASE 14 U/L (10-37); BILIRUBIN,TOTAL 0.2 MG/DL (0.1-1.0); BLOOD UREA NITROGEN 76 MG/DL (7-18); BUN/CREATININE RATIO 22.6 (6.6-38.0); CALCIUM 7.4 MG/DL (8.5-10.1); CHLORIDE 109 MMOL/L (99-107); CREATININE 3.36 MG/DL (0.40-0.90); GLUCOSE 174 MG/DL (70-104); PHOSPHORUS 8.3 MG/DL (2.3-4.5); POTASSIUM 4.3 MMOL/L (3.5-5.1); SODIUM 141 MMOL/L (135-145); TOTAL CARBON DIOXIDE 21.8 MMOL/L (24-32); TOTAL PROTEIN 5.3 G/DL (6.4-8.2); eGFR 15 ML/MIN
[2019-01-05] MEDS: gabapentin 300mg capsule PO SCH (07:31)
[2019-01-05] MEDS: aspirin 81mg tablet.DR PO SCH (07:31)
[2019-01-05] MEDS: lactobacillus rhamnosus 10,000 MMU CELLS/CAPSULE PO SCH ×2 (07:31→21:18)
[2019-01-05] MEDS: duloxetine 20mg capsule.DR PO SCH (07:31)
[2019-01-05] MEDS: sevelamer carbonate 0.8gm powder pkt PO SCH ×3 (07:32→17:10)
[2019-01-05] MEDS: heparin, porcine 5000 units/ml vial SQ SCH ×2 (07:32→20:00)
[2019-01-05] MEDS ORDERED: normal saline 1000ml 250 ML IV PRN (08:00)
[2019-01-05] MEDS ORDERED: heparin 1,000unit/ml 10ml vial 10 ML IV ONE (08:00)
[2019-01-05] MEDS ORDERED: epoetin 20,000 units/ml inj IV ONE (08:00)
[2019-01-05] MEDS ORDERED: heparin 1,000 units/ml 10ml inj HE ONE ×2 (08:00)
[2019-01-05] MEDS ORDERED: metoclopramide 5 mg/ml inj IV ONE (11:50)
[2019-01-05] MEDS ORDERED: bisacodyl 10mg suppository rectal RC STA (12:49)
[2019-01-05] MEDS ORDERED: bisacodyl 10mg suppository rectal RC PRN (12:50)
--- NOTE | 2019-01-05 16:08 | NUR ---
Stool sample obtained. However, patient is currently menstruating. Unable to get stool without menses on it.
[2019-01-05 17:24] LABS: OCCULT BLOOD STOOL POSITIVE (Neg)
--- NOTE | 2019-01-05 18:10 | NUR ---
Patient in room [facility]. I have received report from Barbara Salas and had the opportunity to ask questions and assume patient care. Addendum: 01/05/19 at 1900 by Sirena Garcia RN Amended: Links added.
--- NOTE | 2019-01-05 18:29 | NUR ---
Problems reprioritized. Patient report given, questions answered & plan of care reviewed with KELLEY Pack.
[2019-01-05] MEDS: atorvastatin 20mg tablet PO SCH (21:00)
--- NOTE | 2019-01-05 21:30 | NUR ---
large bm inc of with blood from period moderate amount. sellers care given. nausea resolved after zofran given and ate applesuace with protonix and coreg. refused her other meds. Addendum: 01/05/19 at 2132 by Sirena Garcia RN Amended: Links added.
[2019-01-05] MEDS: insulin glargine (Lantus) pen - multi-dose SQ SCH (21:36)
--- NOTE | 2019-01-05 21:50 | NUR ---
pt inc of another bm and large clots from menstral julieta which pt has had for 3 weeks refused her heparin due to this and bleeding scant now from dialysis cath site and sandbag on the site. went to take it off after noting bleeding stopped pt stated she feels better leaving it on right now.from
--- NOTE | 2019-01-05 22:57 | NUR ---
resting eyes closed without changes.
[2019-01-06] VITALS (16 sets, daily range): BP systolic 147–198; BP diastolic 73–105
--- NOTE | 2019-01-06 | NUR ---
pt resting eyes closed no s&s of distress.
[2019-01-06] MEDS: lactulose 20gm/30ml cup PO SCH ×3 (02:00→14:00)
[2019-01-06] MEDS: normal saline 1000ml 1,000 ML IV SCH ×2 (02:01→14:06)
[2019-01-06] MEDS: clindamycin 300mg/D5W 50mL 50 ML IV SCH ×4 (02:02→21:23)
[2019-01-06] MEDS: ondansetron/PF 4mg/2ml inj IV PRN ×2 (02:10→11:27)
--- NOTE | 2019-01-06 02:13 | NUR ---
pt awoke c/o nausea and medicated for this.
--- NOTE | 2019-01-06 04:00 | NUR ---
resting eyes closed no s&s of distress at this time.
[2019-01-06] MEDS: HYDROcodone/acetaminophen 10/325mg tab PO PRN ×2 (05:36→21:59)
--- NOTE | 2019-01-06 05:36 | NUR ---
medicated 12/26 for lower back pain.
--- NOTE | 2019-01-06 06:05 | NUR ---
pt threw up apple sauce and norco and repositioned in bed after cleaning her up.
--- NOTE | 2019-01-06 06:20 | NUR ---
Problems reprioritized. Patient report given, questions answered & plan of care reviewed with Barbara Salas.
[2019-01-06 06:35] LABS: BASOPHILS # (AUTO) 0.1 X10'3 (0-0.2); BASOPHILS % (AUTO) 0.9 % (0-1); EOSINOPHILS # (AUTO) 0.1 X10'3 (0-0.9); EOSINOPHILS % (AUTO) 0.9 % (0-6); HEMATOCRIT 25.5 % (35.0-45.0); HEMOGLOBIN 8.8 g/dl (12.0-16.0); LYMPHOCYTES # (AUTO) 1.9 X10'3 (1.1-4.8); LYMPHOCYTES % (AUTO) 14.8 % (21-51); MEAN CORPUSCULAR HEMOGLOBIN 30.4 PG (27.0-31.0); MEAN CORPUSCULAR HGB CONC 34.4 g/dL (33.0-36.5); MEAN CORPUSCULAR VOLUME 88.6 FL (78-98); MEAN PLATELET VOLUME 7.1 FL (7.4-10.4); MONOCYTES # (AUTO) 1.9 X10'3 (0-0.9); MONOCYTES % (AUTO) 14.7 % (2-12); NEUTROPHILS # (AUTO) 8.8 X10'3 (1.8-7.7); NEUTROPHILS % (AUTO) 68.7 % (42-75); PLATELET COUNT 493 X10'3 (140-440); RED BLOOD COUNT 2.88 X10'6 (4.20-5.60); WHITE BLOOD COUNT 12.8 X10'3 (4.5-11.0)
[2019-01-06 07:02] LABS: HIV ANTIBODY 1&2 RAPID NON-REACTIVE (Neg)
[2019-01-06 07:07] LABS: ALANINE AMINOTRANSFERASE 19 U/L (12-78); ALBUMIN 1.2 G/DL (3.4-5.0); ALBUMIN/GLOBULIN RATIO 0.3 (1.1-1.5); ALKALINE PHOSPHATASE 121 IU/L (46-116); ANION GAP 10 (8-16); ASPARTATE AMINO TRANSFERASE 22 U/L (10-37); BILIRUBIN,TOTAL 0.2 MG/DL (0.1-1.0); BLOOD UREA NITROGEN 44 MG/DL (7-18); BUN/CREATININE RATIO 15.6 (6.6-38.0); CALCIUM 7.3 MG/DL (8.5-10.1); CHLORIDE 108 MMOL/L (99-107); CREATININE 2.82 MG/DL (0.40-0.90); GLUCOSE 125 MG/DL (70-104); MAGNESIUM 1.8 MG/DL (1.5-2.4); PHOSPHORUS 6.9 MG/DL (2.3-4.5); SODIUM 142 MMOL/L (135-145); TOTAL CARBON DIOXIDE 23.7 MMOL/L (24-32); TOTAL PROTEIN 4.8 G/DL (6.4-8.2); eGFR 18 ML/MIN
--- NOTE | 2019-01-06 07:45 | NUR ---
BP 166/88. Patient refusing all PO medications including BP medications. MD notified via page.
[2019-01-06] MEDS: gabapentin 300mg capsule PO SCH (08:00)
[2019-01-06] MEDS: duloxetine 20mg capsule.DR PO SCH (08:00)
[2019-01-06] MEDS: isosorbide mononitrate 30mg tab.SR.24H PO SCH (08:00)
[2019-01-06] MEDS: lactobacillus rhamnosus 10,000 MMU CELLS/CAPSULE PO SCH ×2 (08:00→21:23)
[2019-01-06] MEDS: carVEDilol 12.5mg tablet PO SCH ×2 (08:00→21:23)
[2019-01-06] MEDS: aspirin 81mg tablet.DR PO SCH (08:00)
[2019-01-06] MEDS: heparin, porcine 5000 units/ml vial SQ SCH ×2 (08:00→21:29)
[2019-01-06] MEDS: sevelamer carbonate 0.8gm powder pkt PO SCH ×3 (08:04→17:30)
[2019-01-06 08:09] LABS: HBSAG SCREEN Negative (Negative)
--- NOTE | 2019-01-06 08:23 | NUR ---
Patient refused orthostatic vital signs. Addendum: 01/06/19 at 0823 by Barbara Tavares RN Amended: Links added.
--- NOTE | 2019-01-06 10:58 | NUR ---
Dressing covering the TDC right upper chest is completely saturated in blood. Removed saturated dressing with psychiatric nursing aide at bedside. Applied fresh gauze and tape. Site is not actively bleeding at the moment. Will continue to monitor.
[2019-01-06 11:18] LABS: COMPLEMENT C3, SERUM 37 mg/dL (82-167); COMPLEMENT C4, SERUM 46 mg/dL (14-44)
[2019-01-06] MEDS: pantoprazole 40 MG vial IV SCH (11:27)
--- NOTE | 2019-01-06 11:48 | NUR ---
Patient to GI lab for EGD.
[2019-01-06] MEDS ORDERED: fentaNYL/PF 50MCG/1 ML 2ML syringe ONE (11:59)
[2019-01-06] MEDS ORDERED: MIDAZolam 5mg/5ml vial ONE (11:59)
[2019-01-06] MEDS ORDERED: LIDOcaine Viscous 15ml cup ONE (12:01)
[2019-01-06] MEDS: scopolamine 1.5mg patch.TD72 TD SCH (14:03)
[2019-01-06] MEDS: hydrALAZINE 20mg/ml inj. IV PRN (14:03)
--- NOTE | 2019-01-06 14:30 | NUR ---
PA aware of increased BP after IV hydralazine was given. No new orders. will continue to monitor.
[2019-01-06] MEDS ORDERED: proMETHazine 25mg tablet PO PRN (14:45)
--- NOTE | 2019-01-06 15:05 | NUR ---
Kush trigger: Kush 12; Pt has BLE +2, R foot +3, and L arm +2 pitting edemas w/ R heel and toe DM ulcers. Glucerna TIDWM added for additional protein needs; MD notified. Pending MD verification prior to sending w/ meals. Pt nausea yesterday refused meals receiving zofran. Will continue to monitor. Addendum: 01/06/19 at [address] Amended: Links added. Addendum: 01/06/19 at [address] Kush trigger: Kush 12; Pt has BLE +2, R foot +3, and L arm +2 pitting edemas w/ R heel and toe DM ulcers. Pt placed on clears s/p EGD unable to add DM-friendly ONS at this time. Will monitor for diet advancement and ONS needs Pt nausea yesterday refused meals receiving zofran.
--- NOTE | 2019-01-06 16:39 | NUR ---
dressing changes completed per MD orders
--- NOTE | 2019-01-06 18:44 | NUR ---
Problems reprioritized. Patient report given, questions answered & plan of care reviewed with KELLEY TAVARES.
[2019-01-06] MEDS: insulin Lispro (HumaLOG) vial - multi-dose SQ SCH (18:53)
--- NOTE | 2019-01-06 19:00 | NUR ---
Patient in room [facility]. I have received report from nurse Barbara BENSON and had the opportunity to ask questions and assume patient care. Addendum: 01/06/19 at 1940 by Lydia Manley RN Amended: Links added.
[2019-01-06] MEDS: atorvastatin 20mg tablet PO SCH (21:00)
[2019-01-06] MEDS: insulin glargine (Lantus) pen - multi-dose SQ SCH (21:28)
[2019-01-07] VITALS: BP 125/78
[2019-01-07] MEDS: normal saline 1000ml 1,000 ML IV SCH ×3 (02:26→16:24)
[2019-01-07] MEDS: clindamycin 300mg/D5W 50mL 50 ML IV SCH ×4 (02:44→19:55)
[2019-01-07 06:00] VITALS: BP 165/83
--- NOTE | 2019-01-07 06:00 | NUR ---
. Patient report given to nurse Sera BENSON, questions answered & plan of care reviewed with . Addendum: 01/07/19 at 0800 by Lydia Manley RN Amended: Links added.
[2019-01-07 06:22] LABS: BASOPHILS # (AUTO) 0.1 X10'3 (0-0.2); BASOPHILS % (AUTO) 1.2 % (0-1); EOSINOPHILS # (AUTO) 0.4 X10'3 (0-0.9); EOSINOPHILS % (AUTO) 3.6 % (0-6); HEMATOCRIT 23.4 % (35.0-45.0); HEMOGLOBIN 8.1 g/dl (12.0-16.0); LYMPHOCYTES # (AUTO) 2.5 X10'3 (1.1-4.8); MEAN CORPUSCULAR HEMOGLOBIN 30.8 PG (27.0-31.0); MEAN CORPUSCULAR HGB CONC 34.5 g/dL (33.0-36.5); MEAN CORPUSCULAR VOLUME 89.2 FL (78-98); MEAN PLATELET VOLUME 6.9 FL (7.4-10.4); MONOCYTES # (AUTO) 1.8 X10'3 (0-0.9); MONOCYTES % (AUTO) 17.8 % (2-12); NEUTROPHILS # (AUTO) 5.5 X10'3 (1.8-7.7); NEUTROPHILS % (AUTO) 53.4 % (42-75); PLATELET COUNT 457 X10'3 (140-440); RED BLOOD COUNT 2.62 X10'6 (4.20-5.60); RED CELL DISTRIBUTION WIDTH 14.1 % (11.5-14.5); WHITE BLOOD COUNT 10.4 X10'3 (4.5-11.0)
[2019-01-07 06:43] LABS: ALANINE AMINOTRANSFERASE 18 U/L (12-78); ALBUMIN 1.1 G/DL (3.4-5.0); ALBUMIN/GLOBULIN RATIO 0.3 (1.1-1.5); ALKALINE PHOSPHATASE 104 IU/L (46-116); ANION GAP 8 (8-16); ASPARTATE AMINO TRANSFERASE 16 U/L (10-37); BILIRUBIN,TOTAL 0.2 MG/DL (0.1-1.0); BLOOD UREA NITROGEN 48 MG/DL (7-18); BUN/CREATININE RATIO 14.2 (6.6-38.0); CALCIUM 7.5 MG/DL (8.5-10.1); CHLORIDE 110 MMOL/L (99-107); CREATININE 3.39 MG/DL (0.40-0.90); GLUCOSE 126 MG/DL (70-104); MAGNESIUM 1.9 MG/DL (1.5-2.4); PHOSPHORUS 7.7 MG/DL (2.3-4.5); POTASSIUM 3.9 MMOL/L (3.5-5.1); SODIUM 141 MMOL/L (135-145); TOTAL CARBON DIOXIDE 23.4 MMOL/L (24-32); TOTAL PROTEIN 4.3 G/DL (6.4-8.2); eGFR 15 ML/MIN
--- NOTE | 2019-01-07 06:55 | NUR ---
Patient in room [facility]. I have received report from Lydia BENSON and had the opportunity to ask questions and assume patient care.
--- NOTE | 2019-01-07 07:00 | NUR ---
Pt slept well with c/o pain x 1 managed with p.o norco. NS running at 100ml/hr continous. HD cath to right chest with mild bleeding that stopped right away. Monitored HD cath site though out the night with no further bleeding episodes,. Bilateral lower extremities elevated on pillows for comfort. Addendum: 01/07/19 at 0757 by Lydia Manley RN Amended: Links added.
[2019-01-07 08:00] VITALS: BP_SYST 165; BP_SYST 177; BP_DIAS 83; BP_DIAS 94
[2019-01-07] MEDS: isosorbide mononitrate 30mg tab.SR.24H PO SCH (08:37)
[2019-01-07] MEDS: pantoprazole 40 MG vial IV SCH (08:37)
[2019-01-07] MEDS: gabapentin 300mg capsule PO SCH (08:38)
[2019-01-07] MEDS: sevelamer carbonate 0.8gm powder pkt PO SCH ×3 (08:38→17:49)
[2019-01-07] MEDS: carVEDilol 12.5mg tablet PO SCH ×2 (08:38→20:00)
[2019-01-07] MEDS: HYDROcodone/acetaminophen 5mg/325mg tablet PO PRN (08:38)
[2019-01-07] MEDS: heparin, porcine 5000 units/ml vial SQ SCH ×2 (08:39→20:00)
[2019-01-07] MEDS: lactobacillus rhamnosus 10,000 MMU CELLS/CAPSULE PO SCH ×2 (08:39→20:00)
[2019-01-07] MEDS: aspirin 81mg tablet.DR PO SCH (08:39)
[2019-01-07] MEDS: duloxetine 20mg capsule.DR PO SCH (08:39)
[2019-01-07] MEDS: ondansetron/PF 4mg/2ml inj IV PRN ×2 (09:19→17:52)
[2019-01-07] MEDS: sodium ferric gluc complex inj 125 MG in normal saline 100ml IV soln 100 ML IV SCH (10:24)
[2019-01-07 11:00] VITALS: BP 155/81
[2019-01-07] MEDS ORDERED: aspirin/acetaminophen/caffeine tablet PO ONE (12:25)
[2019-01-07] MEDS: insulin Lispro (HumaLOG) vial - multi-dose SQ SCH ×2 (13:34→18:53)
--- NOTE | 2019-01-07 17:04 | NUR ---
patient very emotional and stated she was "scared" when encouraged to walk. worked with PT and nursing staff but only able to stand up by side of bed. see PT note. Time spent with patient encouraging her to move in and out of bed. patient refusing to try again. will continue to encourage.
--- NOTE | 2019-01-07 18:38 | NUR ---
Problems reprioritized. Patient report given, questions answered & plan of care reviewed with lilli BENSON.
--- NOTE | 2019-01-07 18:38 | NUR ---
Patient in room [facility]. I have received report from Sera Salas and had the opportunity to ask questions and assume patient care. Addendum: 01/07/19 at 1838 by Sirena Garcia RN Amended: Links added.
--- NOTE | 2019-01-07 19:57 | NUR ---
nauseated and has meds for this on board.
[2019-01-07 20:00] VITALS: BP 174/88
[2019-01-07] MEDS ORDERED: heparin, porcine 5000 units/ml vial SQ SCH (20:00)
--- NOTE | 2019-01-07 20:05 | NUR ---
pt refused her medications did not want to take them and upset her stomach
[2019-01-07] MEDS: atorvastatin 20mg tablet PO SCH (21:00)
[2019-01-07] MEDS: insulin glargine (Lantus) pen - multi-dose SQ SCH (21:55)
--- NOTE | 2019-01-07 22:00 | NUR ---
pt resting eyes closed without changes.
[2019-01-08] VITALS: BP 168/85
--- NOTE | 2019-01-08 01:50 | NUR ---
medicated for headache with tylenol per request
--- NOTE | 2019-01-08 01:59 | NUR ---
pt awoke stated just ate an ice chip. frustrated states tired of bleeding vaginally with clots, tired of throwing up all the time. did not take her meds tonight she said because everything is making her sick and she is tired of it. she said woke up took a couple of ice chips and started throwing up again.
[2019-01-08] MEDS ORDERED: acetaminophen 325mg tablet PO PRN ×2 (02:05→02:16)
[2019-01-08] MEDS: ondansetron/PF 4mg/2ml inj IV PRN ×3 (02:23→17:54)
[2019-01-08] MEDS: clindamycin 300mg/D5W 50mL 50 ML IV SCH ×4 (02:25→22:06)
--- NOTE | 2019-01-08 03:28 | NUR ---
resting eyes closed without s&s of distress at this time.
--- NOTE | 2019-01-08 04:38 | NUR ---
resting eyes closed without changes.
[2019-01-08 06:09] LABS: BASOPHILS # (AUTO) 0.1 X10'3 (0-0.2); BASOPHILS % (AUTO) 1.4 % (0-1); EOSINOPHILS # (AUTO) 0.4 X10'3 (0-0.9); EOSINOPHILS % (AUTO) 4.5 % (0-6); HEMATOCRIT 23.2 % (35.0-45.0); HEMOGLOBIN 7.8 g/dl (12.0-16.0); LYMPHOCYTES # (AUTO) 1.9 X10'3 (1.1-4.8); MEAN CORPUSCULAR HEMOGLOBIN 30.6 PG (27.0-31.0); MEAN CORPUSCULAR HGB CONC 33.6 g/dL (33.0-36.5); MEAN CORPUSCULAR VOLUME 91.2 FL (78-98); MONOCYTES # (AUTO) 1.5 X10'3 (0-0.9); NEUTROPHILS # (AUTO) 5.5 X10'3 (1.8-7.7); NEUTROPHILS % (AUTO) 58.1 % (42-75); PLATELET COUNT 477 X10'3 (140-440); RED BLOOD COUNT 2.55 X10'6 (4.20-5.60); RED CELL DISTRIBUTION WIDTH 14.2 % (11.5-14.5); WHITE BLOOD COUNT 9.5 X10'3 (4.5-11.0)
[2019-01-08 06:22] LABS: ALANINE AMINOTRANSFERASE 19 U/L (12-78); ALBUMIN 1.1 G/DL (3.4-5.0); ALBUMIN/GLOBULIN RATIO 0.3 (1.1-1.5); ALKALINE PHOSPHATASE 106 IU/L (46-116); ANION GAP 8 (8-16); ASPARTATE AMINO TRANSFERASE 18 U/L (10-37); BILIRUBIN,TOTAL 0.2 MG/DL (0.1-1.0); BLOOD UREA NITROGEN 51 MG/DL (7-18); BUN/CREATININE RATIO 15.4 (6.6-38.0); CALCIUM 7.3 MG/DL (8.5-10.1); CHLORIDE 110 MMOL/L (99-107); CREATININE 3.31 MG/DL (0.40-0.90); GLUCOSE 113 MG/DL (70-104); MAGNESIUM 1.9 MG/DL (1.5-2.4); PHOSPHORUS 7.8 MG/DL (2.3-4.5); POTASSIUM 4.1 MMOL/L (3.5-5.1); SODIUM 141 MMOL/L (135-145); TOTAL CARBON DIOXIDE 22.9 MMOL/L (24-32); TOTAL PROTEIN 4.4 G/DL (6.4-8.2); eGFR 15 ML/MIN
--- NOTE | 2019-01-08 06:38 | NUR ---
Problems reprioritized. Patient report given, questions answered & plan of care reviewed with Sera Salas. Addendum: 01/08/19 at 0639 by Sirena Garcia RN Amended: Links added.
--- NOTE | 2019-01-08 06:52 | NUR ---
Patient in room [facility]. I have received report from Lisa bullock and had the opportunity to ask questions and assume patient care.
[2019-01-08 07:00] VITALS: BP 180/82
[2019-01-08] MEDS: pantoprazole 40 MG vial IV SCH (07:48)
[2019-01-08] MEDS: clopidogrel 75mg tablet PO SCH (07:54)
[2019-01-08] MEDS: duloxetine 20mg capsule.DR PO SCH (07:54)
[2019-01-08] MEDS: aspirin 81mg tablet.DR PO SCH (07:54)
[2019-01-08] MEDS: carVEDilol 12.5mg tablet PO SCH ×2 (07:54→22:07)
[2019-01-08] MEDS: isosorbide mononitrate 30mg tab.SR.24H PO SCH (07:55)
[2019-01-08] MEDS: lactobacillus rhamnosus 10,000 MMU CELLS/CAPSULE PO SCH ×2 (07:55→22:08)
[2019-01-08] MEDS: gabapentin 300mg capsule PO SCH (07:55)
[2019-01-08] MEDS: sevelamer carbonate 0.8gm powder pkt PO SCH ×3 (08:30→18:24)
[2019-01-08] MEDS ORDERED: heparin 1,000unit/ml 10ml vial 10 ML IV ONE (08:36)
[2019-01-08] MEDS ORDERED: normal saline 1000ml 250 ML IV PRN (08:36)
[2019-01-08] MEDS ORDERED: heparin 1,000 units/ml 10ml inj HE ONE ×2 (08:40)
[2019-01-08] MEDS ORDERED: epoetin 20,000 units/ml inj IV ONE (08:40)
[2019-01-08] MEDS: sodium ferric gluc complex inj 125 MG in normal saline 100ml IV soln 100 ML IV SCH (10:18)
[2019-01-08 11:00] VITALS: BP 169/87
--- NOTE | 2019-01-08 13:50 | NUR ---
patient once again very reluctant to participate in care. Refusing meds and PT in am. Much time spent with patient. Patient seen by DR Mejia and DR Fernandez, Order given for patient to start renal diet, Patient felt nauseous this am but responded well to Zofran . Agreed to participate with PT this afternoon see note.ANxious and tearful at times.
--- NOTE | 2019-01-08 17:15 | NUR ---
Patient is for dialysis this afternoon, noticed two slightly reddened areas on bilat calves posterior. blanchable applted two optofoams and elevated legs on pillow.
--- NOTE | 2019-01-08 18:45 | NUR ---
Patient in room [facility]. I have received report from Sera Salas and had the opportunity to ask questions and assume patient care. Addendum: 01/08/19 at 5 by Sirena Garcia RN Amended: Links added.
[2019-01-08 19:30] VITALS: BP 157/80
--- NOTE | 2019-01-08 22:02 | NUR ---
received report from pairing machine operator, dialsis completed pt tolerated well and now able to give her her meds. total fluid reported taken off with dialysis is 3349cc. pt tolerated it well.
[2019-01-08] MEDS: atorvastatin 20mg tablet PO SCH (22:07)
[2019-01-08] MEDS: insulin glargine (Lantus) pen - multi-dose SQ SCH (22:19)
[2019-01-09] VITALS: BP 161/82
--- NOTE | 2019-01-09 | NUR ---
pt resting eyes closed without changes.
--- NOTE | 2019-01-09 02:00 | NUR ---
pt resting eyes closed without changes.
[2019-01-09] MEDS: clindamycin 300mg/D5W 50mL 50 ML IV SCH ×4 (02:15→21:37)
--- NOTE | 2019-01-09 04:00 | NUR ---
resting eyes closed without changes.
--- NOTE | 2019-01-09 06:19 | NUR ---
Problems reprioritized. Patient report given, questions answered & plan of care reviewed with Lily Salas. Addendum: 01/09/19 at 0620 by Sirena Garcia RN Amended: Links added.
[2019-01-09 07:30] VITALS: BP 168/86
[2019-01-09] MEDS: lactobacillus rhamnosus 10,000 MMU CELLS/CAPSULE PO SCH ×2 (08:11→21:36)
[2019-01-09] MEDS: duloxetine 20mg capsule.DR PO SCH (08:11)
[2019-01-09] MEDS: isosorbide mononitrate 30mg tab.SR.24H PO SCH (08:11)
[2019-01-09] MEDS: aspirin 81mg tablet.DR PO SCH (08:11)
[2019-01-09] MEDS: clopidogrel 75mg tablet PO SCH (08:11)
[2019-01-09] MEDS: carVEDilol 12.5mg tablet PO SCH ×2 (08:11→21:37)
[2019-01-09] MEDS: pantoprazole 40 MG vial IV SCH (08:12)
[2019-01-09] MEDS: gabapentin 300mg capsule PO SCH (08:13)
[2019-01-09] MEDS: sevelamer carbonate 0.8gm powder pkt PO SCH ×3 (08:14→17:38)
[2019-01-09] MEDS: sodium ferric gluc complex inj 125 MG in normal saline 100ml IV soln 100 ML IV SCH (08:15)
[2019-01-09] MEDS: insulin Lispro (HumaLOG) vial - multi-dose SQ SCH ×2 (10:17→19:05)
[2019-01-09 10:56] VITALS: BP 149/78
[2019-01-09 11:43] LABS: BASOPHILS # (AUTO) 0.1 X10'3 (0-0.2); BASOPHILS % (AUTO) 1.1 % (0-1); EOSINOPHILS # (AUTO) 0.3 X10'3 (0-0.9); HEMOGLOBIN 8.2 g/dl (12.0-16.0); LYMPHOCYTES # (AUTO) 1.4 X10'3 (1.1-4.8); LYMPHOCYTES % (AUTO) 13.4 % (21-51); MEAN CORPUSCULAR VOLUME 91.2 FL (78-98); MEAN PLATELET VOLUME 6.8 FL (7.4-10.4); MONOCYTES # (AUTO) 1.3 X10'3 (0-0.9); MONOCYTES % (AUTO) 12.9 % (2-12); NEUTROPHILS # (AUTO) 7.3 X10'3 (1.8-7.7); NEUTROPHILS % (AUTO) 69.6 % (42-75); PLATELET COUNT 494 X10'3 (140-440); RED BLOOD COUNT 2.64 X10'6 (4.20-5.60); RED CELL DISTRIBUTION WIDTH 14.2 % (11.5-14.5); WHITE BLOOD COUNT 10.4 X10'3 (4.5-11.0)
[2019-01-09 11:54] LABS: ALBUMIN 1.2 G/DL (3.4-5.0); ANION GAP 8 (8-16); BLOOD UREA NITROGEN 34 MG/DL (7-18); BUN/CREATININE RATIO 12.4 (6.6-38.0); CHLORIDE 107 MMOL/L (99-107); CREATININE 2.74 MG/DL (0.40-0.90); GLUCOSE 211 MG/DL (70-104); POTASSIUM 3.7 MMOL/L (3.5-5.1); SODIUM 140 MMOL/L (135-145); TOTAL CARBON DIOXIDE 24.7 MMOL/L (24-32); eGFR 19 ML/MIN
[2019-01-09 12:31] LABS: PLATELET ESTIMATE INCREASED; TOTAL CELLS COUNTED 100
--- NOTE | 2019-01-09 13:25 | NUR ---
Reassessment: Patient's diet has been advanced to renal, documented with 0-25% PO intake all of 01/08, previously averaging 75% PO intake with refusals however up to 100% at breakfast this morning. Noted that pt previously documented with emesis, receiving Zofran and Phenergan PRN both last given on 01/08. Pt seen at bedside endorses a good appetite and denies N/V at this time. Pt provided with written and verbal protein education for wound healing and HD protein needs. Pt denied additional protein at this time. RD contact information provided. BG levels fairly controlled with range 94-211, will monitor labs and PO intake to determine need for the addition of CHO controlled diet. LBM 01/06. Pt with MoM PRN not yet given and with Dulcolax PRN last given 01/04. Pt reports it's usual to have a BM q 3-4 days and denies nutrition therapy at this time. Will continue to follow. Rec: 1. continue renal diet; monitor need for the addition of CHO controlled diet 2. phosphorus binder per MD 3. Monitor need for ONS 4. wt w/ HD Addendum: 01/09/19 at [address] Amended: Links added.
[2019-01-09] MEDS: scopolamine 1.5mg patch.TD72 TD SCH (13:34)
[2019-01-09 15:18] LABS: HEP B CORE AB, IGM Negative (Negative)
[2019-01-09 18:00] VITALS: BP 161/83
--- NOTE | 2019-01-09 18:59 | NUR ---
Spoke to charge concerning results of CT scan. Advised to notify night chemical laboratory technician. Notified MD Oralia Hassan of results. New orders to keep pt. NPO after midnight. Passed on in report. Gave report to Anna Mcfadden RN.
--- NOTE | 2019-01-09 19:24 | NUR ---
Patient in room [facility]. I have received report from KELLEY Robertson and had the opportunity to ask questions and assume patient care. Addendum: 01/09/19 at 1924 by Rose Campbell RN Amended: Links added.
[2019-01-09] MEDS: atorvastatin 20mg tablet PO SCH (21:37)
[2019-01-09] MEDS: insulin glargine (Lantus) pen - multi-dose SQ SCH (22:06)
[2019-01-10] VITALS (7 sets, daily range): BP systolic 153–179; BP diastolic 86–93
[2019-01-10] MEDS: clindamycin 300mg/D5W 50mL 50 ML IV SCH ×4 (03:01→21:05)
[2019-01-10 04:49] LABS: BASOPHILS # (AUTO) 0.1 X10'3 (0-0.2); BASOPHILS % (AUTO) 1.2 % (0-1); EOSINOPHILS # (AUTO) 0.4 X10'3 (0-0.9); EOSINOPHILS % (AUTO) 3.6 % (0-6); HEMATOCRIT 23.1 % (35.0-45.0); HEMOGLOBIN 7.7 g/dl (12.0-16.0); LYMPHOCYTES % (AUTO) 18.1 % (21-51); MEAN CORPUSCULAR HEMOGLOBIN 30.2 PG (27.0-31.0); MEAN CORPUSCULAR HGB CONC 33.4 g/dL (33.0-36.5); MEAN CORPUSCULAR VOLUME 90.4 FL (78-98); MEAN PLATELET VOLUME 6.8 FL (7.4-10.4); MONOCYTES # (AUTO) 1.7 X10'3 (0-0.9); MONOCYTES % (AUTO) 15.7 % (2-12); NEUTROPHILS # (AUTO) 6.8 X10'3 (1.8-7.7); NEUTROPHILS % (AUTO) 61.4 % (42-75); PLATELET COUNT 475 X10'3 (140-440); RED BLOOD COUNT 2.56 X10'6 (4.20-5.60); RED CELL DISTRIBUTION WIDTH 14.5 % (11.5-14.5)
[2019-01-10 04:59] LABS: ALANINE AMINOTRANSFERASE 16 U/L (12-78); ALBUMIN 1.2 G/DL (3.4-5.0); ALBUMIN/GLOBULIN RATIO 0.4 (1.1-1.5); ALKALINE PHOSPHATASE 100 IU/L (46-116); ANION GAP 7 (8-16); ASPARTATE AMINO TRANSFERASE 15 U/L (10-37); BILIRUBIN,TOTAL 0.1 MG/DL (0.1-1.0); BLOOD UREA NITROGEN 37 MG/DL (7-18); BUN/CREATININE RATIO 12.8 (6.6-38.0); CALCIUM 6.9 MG/DL (8.5-10.1); CHLORIDE 107 MMOL/L (99-107); GLUCOSE 183 MG/DL (70-104); MAGNESIUM 1.7 MG/DL (1.5-2.4); PHOSPHORUS 5.5 MG/DL (2.3-4.5); POTASSIUM 3.8 MMOL/L (3.5-5.1); SODIUM 140 MMOL/L (135-145); TOTAL CARBON DIOXIDE 25.9 MMOL/L (24-32); TOTAL PROTEIN 4.3 G/DL (6.4-8.2); eGFR 18 ML/MIN
--- NOTE | 2019-01-10 06:25 | NUR ---
Problems reprioritized. Patient report given, questions answered & plan of care reviewed with KELLEY Robertson. Addendum: 01/10/19 at 0625 by Rose Campbell RN Amended: Links added.
[2019-01-10] MEDS ORDERED: heparin 1,000 units/ml 10ml inj HE ONE ×2 (08:00)
[2019-01-10] MEDS ORDERED: epoetin 20,000 units/ml inj IV ONE (08:00)
[2019-01-10] MEDS ORDERED: normal saline 1000ml 250 ML IV PRN (08:00)
[2019-01-10] MEDS ORDERED: heparin 1,000unit/ml 10ml vial 10 ML IV ONE (08:00)
[2019-01-10] MEDS: sodium ferric gluc complex inj 125 MG in normal saline 100ml IV soln 100 ML IV SCH (08:39)
[2019-01-10] MEDS: isosorbide mononitrate 30mg tab.SR.24H PO SCH (08:39)
[2019-01-10] MEDS: carVEDilol 12.5mg tablet PO SCH ×2 (08:39→21:08)
[2019-01-10] MEDS: sevelamer carbonate 0.8gm powder pkt PO SCH ×3 (08:39→17:30)
[2019-01-10] MEDS: lactobacillus rhamnosus 10,000 MMU CELLS/CAPSULE PO SCH ×2 (08:39→21:05)
[2019-01-10] MEDS: duloxetine 20mg capsule.DR PO SCH (08:39)
[2019-01-10] MEDS: gabapentin 300mg capsule PO SCH (08:39)
[2019-01-10] MEDS: insulin Lispro (HumaLOG) vial - multi-dose SQ SCH ×2 (08:55→13:40)
--- NOTE | 2019-01-10 09:00 | NUR ---
MD SANCHEZ EVIN IN TO ASSESS PT. DISCUSSED PROCEDURE FOR AM. EXAM UNDER ANESTHESIA, CERVICAL BIOPSIES, HYSTEROSCOPY, FRACTIONAL DILATION AND CURETTAGE. RISKS AND BENEFITS DISCUSSED WITH PT. PT IS AGREEABLE TO POC. CONSENT IN CHART. MD DUMONT, MD AGUILAR, AND CHARGE MADE AWARE.
[2019-01-10] MEDS: pantoprazole 40mg Tablet.DR PO SCH (09:27)
--- NOTE | 2019-01-10 10:00 | NUR ---
PT.'S SYSTOLIC ABOVE 170. RECHECKED AND MONITORED AFTER MORNING MEDICATION WITH BP MEDS. SYSTOLIC STILL OVER 170. MD DUMONT MADE AWARE. SEE NEW CLONIDINE ORDER. BP REASSESSED AFTER MEDICATION METABOLIZED. SYSTOLIC BELOW 160. WILL CONT. TO MONITOR PT. ON MY SHIFT. DIALYSIS SCHEDULED FOR THIS AFTERNOON.
--- NOTE | 2019-01-10 11:05 | NUR ---
Stomach is non-tender in all 4 quadrants. The abdomen is hard distally, bilaterally, but non-tender. Addendum: 01/10/19 at 1117 by Yanet DALTON Amended: Links added.
[2019-01-10] MEDS: cloNIDine 0.1 mg tablet PO SCH ×2 (12:47→21:08)
--- NOTE | 2019-01-10 15:14 | NUR ---
BUTCHER CATHETER DC'D. PT. TOLERATED WELL. SOME VAGINAL BLOOD NOTED. PT PROVIDED WITH MESH UNDERWEAR AND SANITARY PADS.
--- NOTE | 2019-01-10 16:37 | NUR ---
PAGER ID: [phone] MESSAGE: [id number] FLOWER DORAN PT.'S SISTER WOULD LIKE YOU TO CALL HER. IRENE CHILDS [phone] SOL BENSON [phone]
--- NOTE | 2019-01-10 17:30 | NUR ---
Pt. upset after family called her to tell her that she had heart failure, stage 5 kidney cancer, and was dying. Called sister in front of patient to clarify some issues and misinterpretations. Both pt. and family member are calm and reassured. Waiting to speak with MD.
--- NOTE | 2019-01-10 18:00 | NUR ---
Spoke with daughter Georgina on the phone. She said that her Aunt who recently talked with this nurse said that this nurse said the patient's condition was emergent, that her heart was failing and that she needed to gather her family up to visit the pt and prepare for a kidney transplant. Clarified with the daughter that this is not what this nurse said or meant, that the Aunt had CHF and was oriented enough to ask for the pt.'s ejection fracture. The ejection fracture was revealed to the family member. The family member was told that a prediction of the pt's condition could not be made by this nurse, but that this nurse would contact the doctor to speak to her. MD was paged. this nurse also explained that wether or not the family chose to visit was a family decision. PT was discussed, and the family is aware that the pt. had been refusing PT and that it was serious that the pt. participate in PT. Requested that the daughter find one spokesperson for the family as the patient has many family contacts.
--- NOTE | 2019-01-10 19:02 | NUR ---
Gave report to Prudence RN. Pt. is alert and breathing well, in room with dialysis nurse.
--- NOTE | 2019-01-10 19:05 | NUR ---
Patient in room [facility]. I have received report from Lily BENSON and had the opportunity to ask questions and assume patient care. Patient is receiving dialysis.
--- NOTE | 2019-01-10 19:10 | NUR ---
Sara BENSON made aware- 1530 dose of Renvela held at this time r/t pt. refused dinner meal- fish on tray. Kitchen faxed for new HH/CC meal tray. Renvela to be given with meal Addendum: 01/10/19 at 191 by Lily Vazquez RN Prema BENSON aware sellers catheter was removed at 1500 and pt. has not voided at this time.
[2019-01-10] MEDS: insulin glargine (Lantus) pen - multi-dose SQ SCH (21:00)
[2019-01-10] MEDS: atorvastatin 20mg tablet PO SCH (21:06)
[2019-01-11] VITALS (19 sets, daily range): BP systolic 133–171; BP diastolic 68–145
--- NOTE | 2019-01-11 00:20 | NUR ---
FC discontinued Addendum: 01/11/19 at 0021 by Sara Paniagua RN Amended: Links added.
--- NOTE | 2019-01-11 00:23 | NUR ---
No sellers catheter Addendum: 01/11/19 at 0024 by Sara Paniagua RN Amended: Links added.
[2019-01-11] MEDS: clindamycin 300mg/D5W 50mL 50 ML IV SCH ×4 (02:17→20:35)
[2019-01-11 05:28] LABS: BASOPHILS # (AUTO) 0.1 X10'3 (0-0.2); BASOPHILS % (AUTO) 1.1 % (0-1); EOSINOPHILS # (AUTO) 0.4 X10'3 (0-0.9); EOSINOPHILS % (AUTO) 3.4 % (0-6); HEMOGLOBIN 8.2 g/dl (12.0-16.0); LYMPHOCYTES % (AUTO) 15.5 % (21-51); MEAN CORPUSCULAR HEMOGLOBIN 30.2 PG (27.0-31.0); MEAN CORPUSCULAR VOLUME 91.6 FL (78-98); MEAN PLATELET VOLUME 7.1 FL (7.4-10.4); MONOCYTES # (AUTO) 1.9 X10'3 (0-0.9); MONOCYTES % (AUTO) 14.5 % (2-12); NEUTROPHILS # (AUTO) 8.5 X10'3 (1.8-7.7); NEUTROPHILS % (AUTO) 65.5 % (42-75); PLATELET COUNT 475 X10'3 (140-440); RED BLOOD COUNT 2.73 X10'6 (4.20-5.60); RED CELL DISTRIBUTION WIDTH 14.4 % (11.5-14.5); WHITE BLOOD COUNT 12.9 X10'3 (4.5-11.0)
[2019-01-11 05:47] LABS: ALANINE AMINOTRANSFERASE 21 U/L (12-78); ALBUMIN 1.2 G/DL (3.4-5.0); ALBUMIN/GLOBULIN RATIO 0.4 (1.1-1.5); ALKALINE PHOSPHATASE 102 IU/L (46-116); ANION GAP 5 (8-16); ASPARTATE AMINO TRANSFERASE 23 U/L (10-37); BILIRUBIN,TOTAL 0.2 MG/DL (0.1-1.0); BLOOD UREA NITROGEN 22 MG/DL (7-18); BUN/CREATININE RATIO 9.4 (6.6-38.0); CALCIUM 7.3 MG/DL (8.5-10.1); CHLORIDE 106 MMOL/L (99-107); CREATININE 2.34 MG/DL (0.40-0.90); GLUCOSE 164 MG/DL (70-104); MAGNESIUM 1.7 MG/DL (1.5-2.4); PHOSPHORUS 3.9 MG/DL (2.3-4.5); POTASSIUM 4.1 MMOL/L (3.5-5.1); SODIUM 139 MMOL/L (135-145); TOTAL CARBON DIOXIDE 28.3 MMOL/L (24-32); TOTAL PROTEIN 4.5 G/DL (6.4-8.2); eGFR 22 ML/MIN
--- NOTE | 2019-01-11 06:25 | NUR ---
Problems reprioritized. Patient report given, questions answered & plan of care reviewed with Mariola BENSON.
--- NOTE | 2019-01-11 06:29 | NUR ---
Patient in room [facility]. I have received report from KELLEY Ruiz and had the opportunity to ask questions and assume patient care.
[2019-01-11] MEDS: sevelamer carbonate 0.8gm powder pkt PO SCH ×3 (06:31→17:30)
--- NOTE | 2019-01-11 06:55 | NUR ---
Patient to OR via bed and taken from unit with x2 staff. Patient alert, oriented and in no apparent distress at this time.
[2019-01-11] MEDS ORDERED: sevoflurane 250ml liquid IH ONE (07:19)
[2019-01-11] MEDS ORDERED: ringers solution, lacted 1,000 ML IV SCH (07:21)
[2019-01-11] MEDS ORDERED: ondansetron/PF 4mg/2ml inj IV PRN (07:25)
[2019-01-11] MEDS ORDERED: proCHLORperazine 10 MG/2 ml inj IV PRN (07:25)
[2019-01-11] MEDS ORDERED: morphine 4 MG/ML inj SYRINge IV PRN ×2 (07:25)
[2019-01-11] MEDS ORDERED: meperidine/PF 25mg/ml syringe IV PRN ×3 (07:25)
[2019-01-11] MEDS ORDERED: midazolam 2 mg/2 ml injection ONE (07:27)
[2019-01-11] MEDS ORDERED: fentaNYL/PF 50MCG/1 ML 2ML syringe ONE (07:27)
[2019-01-11] MEDS ORDERED: propofol inj 20 ML IV ONE (08:03)
--- NOTE | 2019-01-11 08:10 | NUR ---
Received from OR via BED , accompanied by Anesthesiologist DR LARSEN and report given by Anesthesiolgist. PATIENT WAKING UP, V/S WNL, NEUROVASCULAR CHECKS INTACT, 20G PIV LUE, SCD ON, PERIPAD WITH SCANT OUT PUT
--- NOTE | 2019-01-11 08:50 | NUR ---
PATIENT A&OX4, DENIES PAIN, V/S WNL, NEUROVASCULAR CHECKS INTACT, 20G PIV LUE , SCD ON, . FRESH KAPIL PAD SACNT DRAINAGE. DIALYSIS CATH TO RIGHT CHEST. TAKEN TO 350A WITH ALL BELONGINGS AND HOOKED UP TO MONITORS IN ROOM AND REPORT GIVEN TO RN WHO HAS TAKEN OVER PATIENT CARE.
--- NOTE | 2019-01-11 09:00 | NUR ---
Patient returned from OR. VSS. BLL. Call light in reach of patient. Patient refusing to take PO medications. Patient states "why can't you just leave me alone?" Patient was educated about the importance of PO medication especially blood pressure medications. Patient stated she did not want to take them and to stop asking her about them.
[2019-01-11] MEDS: pantoprazole 40mg Tablet.DR PO SCH (09:14)
[2019-01-11] MEDS: cloNIDine 0.1 mg tablet PO SCH ×2 (09:14→20:34)
[2019-01-11] MEDS: lactobacillus rhamnosus 10,000 MMU CELLS/CAPSULE PO SCH ×2 (09:15→20:34)
[2019-01-11] MEDS: gabapentin 300mg capsule PO SCH (09:15)
[2019-01-11] MEDS: duloxetine 20mg capsule.DR PO SCH (09:15)
[2019-01-11] MEDS: carVEDilol 12.5mg tablet PO SCH ×2 (09:15→20:33)
[2019-01-11] MEDS: isosorbide mononitrate 30mg tab.SR.24H PO SCH (09:15)
[2019-01-11] MEDS: sodium ferric gluc complex inj 125 MG in normal saline 100ml IV soln 100 ML IV SCH (10:38)
--- NOTE | 2019-01-11 12:00 | NUR ---
Received report from student nurse dain Holt in bed resting, no s/s of distress noted. [address], bed lowered and locked, call light within reach. Will continue to monitor.
[2019-01-11] MEDS: hydrALAZINE 20mg/ml inj. IV PRN (13:49)
--- NOTE | 2019-01-11 14:00 | NUR ---
Patient refused insulin at this time, stating, " I haven't eaten and I don't want insulin right now." will reassess blood sugar at 1700 and won't move patient up on the protocol level.
--- NOTE | 2019-01-11 17:28 | NUR ---
Student documentation: I have reviewed and agree with all interventions, assessments performed and documented by SN [facility].
--- NOTE | 2019-01-11 17:54 | NUR ---
Report given to primary nurse Mariola BENSON, pt in bed sleeping, no s/s of distress at this time. Call light within reach, bed in low position and locked.
--- NOTE | 2019-01-11 18:05 | NUR ---
Patient in room [facility]. I have received report from Mariola BENSON and had the opportunity to ask questions and assume patient care.
--- NOTE | 2019-01-11 18:11 | NUR ---
Went to give patient Revela, patient refused stating, "leave me alone!"
--- NOTE | 2019-01-11 18:27 | NUR ---
Problems reprioritized. Patient report given, questions answered & plan of care reviewed with KELLEY Braga.
[2019-01-11] MEDS: insulin Lispro (HumaLOG) vial - multi-dose SQ SCH (20:30)
--- NOTE | 2019-01-11 20:30 | NUR ---
pt just finished her dinner. she was waiting for gravy but it did not come. will admin insulin and will continue to monitor
[2019-01-11] MEDS: atorvastatin 20mg tablet PO SCH (20:33)
[2019-01-11] MEDS: insulin glargine (Lantus) pen - multi-dose SQ SCH (22:00)
[2019-01-11] MEDS: ondansetron/PF 4mg/2ml inj IV PRN (22:26)
[2019-01-12] VITALS: BP 133/69
[2019-01-12] MEDS: clindamycin 300mg/D5W 50mL 50 ML IV SCH ×4 (02:25→21:28)
--- NOTE | 2019-01-12 04:56 | NUR ---
Bladder scanned pt and she had 375mL in her bladder. denies distention or the need to void. offered to get [place] [facility] [place]. will continue to monitor. and asked pt to use call light when she is ready to void.
[2019-01-12 05:26] LABS: BASOPHILS # (AUTO) 0.1 X10'3 (0-0.2); BASOPHILS % (AUTO) 0.9 % (0-1); EOSINOPHILS # (AUTO) 0.5 X10'3 (0-0.9); EOSINOPHILS % (AUTO) 3.4 % (0-6); HEMATOCRIT 24.4 % (35.0-45.0); HEMOGLOBIN 8.2 g/dl (12.0-16.0); LYMPHOCYTES # (AUTO) 1.8 X10'3 (1.1-4.8); LYMPHOCYTES % (AUTO) 12.5 % (21-51); MEAN CORPUSCULAR HEMOGLOBIN 31.2 PG (27.0-31.0); MEAN CORPUSCULAR HGB CONC 33.6 g/dL (33.0-36.5); MEAN CORPUSCULAR VOLUME 92.9 FL (78-98); MONOCYTES # (AUTO) 1.7 X10'3 (0-0.9); MONOCYTES % (AUTO) 12.3 % (2-12); NEUTROPHILS % (AUTO) 70.9 % (42-75); PLATELET COUNT 464 X10'3 (140-440); RED BLOOD COUNT 2.63 X10'6 (4.20-5.60); WHITE BLOOD COUNT 14.1 X10'3 (4.5-11.0)
--- NOTE | 2019-01-12 06:00 | NUR ---
Patient in room [facility]. I have received report from Maria Luz BENSON and had the opportunity to ask questions and assume patient care.
--- NOTE | 2019-01-12 06:15 | NUR ---
Problems reprioritized. Patient report given, questions answered & plan of care reviewed with Maria L BENSON.
[2019-01-12 07:20] LABS: ALANINE AMINOTRANSFERASE 22 U/L (12-78); ALBUMIN 1.2 G/DL (3.4-5.0); ALBUMIN/GLOBULIN RATIO 0.4 (1.1-1.5); ALKALINE PHOSPHATASE 110 IU/L (46-116); ANION GAP 7 (8-16); ASPARTATE AMINO TRANSFERASE 25 U/L (10-37); BILIRUBIN,TOTAL 0.1 MG/DL (0.1-1.0); BLOOD UREA NITROGEN 28 MG/DL (7-18); BUN/CREATININE RATIO 9.9 (6.6-38.0); CHLORIDE 106 MMOL/L (99-107); CREATININE 2.83 MG/DL (0.40-0.90); GLUCOSE 144 MG/DL (70-104); PHOSPHORUS 4.9 MG/DL (2.3-4.5); POTASSIUM 4.5 MMOL/L (3.5-5.1); SODIUM 139 MMOL/L (135-145); TOTAL CARBON DIOXIDE 26.1 MMOL/L (24-32); TOTAL PROTEIN 4.4 G/DL (6.4-8.2); eGFR 18 ML/MIN
[2019-01-12 08:00] VITALS: BP 162/85
[2019-01-12] MEDS ORDERED: epoetin 20,000 units/ml inj IV ONE (08:00)
[2019-01-12] MEDS ORDERED: heparin 1,000 units/ml 10ml inj HE ONE ×2 (08:00)
[2019-01-12] MEDS ORDERED: normal saline 1000ml 250 ML IV PRN (08:00)
[2019-01-12] MEDS: duloxetine 20mg capsule.DR PO SCH (08:21)
[2019-01-12] MEDS: lactobacillus rhamnosus 10,000 MMU CELLS/CAPSULE PO SCH ×2 (08:21→21:22)
[2019-01-12] MEDS: isosorbide mononitrate 30mg tab.SR.24H PO SCH (08:21)
[2019-01-12] MEDS: carVEDilol 12.5mg tablet PO SCH ×2 (08:21→21:22)
[2019-01-12] MEDS: cloNIDine 0.1 mg tablet PO SCH ×2 (08:21→21:22)
[2019-01-12] MEDS: pantoprazole 40mg Tablet.DR PO SCH (08:21)
[2019-01-12] MEDS: gabapentin 300mg capsule PO SCH (08:21)
[2019-01-12] MEDS: sodium ferric gluc complex inj 125 MG in normal saline 100ml IV soln 100 ML IV SCH (08:22)
[2019-01-12] MEDS: sevelamer carbonate 0.8gm powder pkt PO SCH ×3 (08:27→17:30)
[2019-01-12] MEDS: insulin Lispro (HumaLOG) vial - multi-dose SQ SCH ×2 (09:53→19:02)
[2019-01-12 11:00] VITALS: BP 143/85
--- NOTE | 2019-01-12 14:18 | NUR ---
SPOKE WITH CM. NO BED AVAILABLE UNTIL TOMORROW AT [facility]
[2019-01-12] MEDS: scopolamine 1.5mg patch.TD72 TD SCH (14:28)
--- NOTE | 2019-01-12 17:54 | NUR ---
Problems reprioritized. Patient report given, questions answered & plan of care reviewed with JHON BENSON.
[2019-01-12 18:00] VITALS: BP 148/76
--- NOTE | 2019-01-12 18:05 | NUR ---
Patient in room [facility]. I have received report from Maria L BENSON and had the opportunity to ask questions and assume patient care.
[2019-01-12] MEDS: insulin glargine (Lantus) pen - multi-dose SQ SCH (20:56)
[2019-01-12] MEDS: atorvastatin 20mg tablet PO SCH (21:22)
[2019-01-13] VITALS: BP 143/75
[2019-01-13] MEDS: clindamycin 300mg/D5W 50mL 50 ML IV SCH ×4 (01:46→20:38)
[2019-01-13 06:30] VITALS: BP 169/88
--- NOTE | 2019-01-13 06:40 | NUR ---
Patient in room [facility]. I have received report from KELLEY Ross and had the opportunity to ask questions and assume patient care.
--- NOTE | 2019-01-13 06:45 | NUR ---
Problems reprioritized. Patient report given, questions answered & plan of care reviewed with Patricia RN.
[2019-01-13 07:18] LABS: BASOPHILS # (AUTO) 0.1 X10'3 (0-0.2); BASOPHILS % (AUTO) 1.1 % (0-1); EOSINOPHILS # (AUTO) 0.4 X10'3 (0-0.9); EOSINOPHILS % (AUTO) 3.1 % (0-6); HEMATOCRIT 25.2 % (35.0-45.0); HEMOGLOBIN 8.4 g/dl (12.0-16.0); LYMPHOCYTES # (AUTO) 2.2 X10'3 (1.1-4.8); LYMPHOCYTES % (AUTO) 16.3 % (21-51); MEAN CORPUSCULAR HEMOGLOBIN 30.8 PG (27.0-31.0); MEAN CORPUSCULAR HGB CONC 33.4 g/dL (33.0-36.5); MEAN CORPUSCULAR VOLUME 92.2 FL (78-98); MEAN PLATELET VOLUME 7.1 FL (7.4-10.4); MONOCYTES # (AUTO) 1.8 X10'3 (0-0.9); MONOCYTES % (AUTO) 13.6 % (2-12); NEUTROPHILS # (AUTO) 8.7 X10'3 (1.8-7.7); NEUTROPHILS % (AUTO) 65.9 % (42-75); PLATELET COUNT 489 X10'3 (140-440); RED BLOOD COUNT 2.73 X10'6 (4.20-5.60); RED CELL DISTRIBUTION WIDTH 15.2 % (11.5-14.5); WHITE BLOOD COUNT 13.2 X10'3 (4.5-11.0)
[2019-01-13 07:21] LABS: ALANINE AMINOTRANSFERASE 21 U/L (12-78); ALBUMIN 1.2 G/DL (3.4-5.0); ALBUMIN/GLOBULIN RATIO 0.4 (1.1-1.5); ALKALINE PHOSPHATASE 119 IU/L (46-116); ANION GAP 4 (8-16); ASPARTATE AMINO TRANSFERASE 18 U/L (10-37); BILIRUBIN,TOTAL 0.1 MG/DL (0.1-1.0); BLOOD UREA NITROGEN 19 MG/DL (7-18); BUN/CREATININE RATIO 7.3 (6.6-38.0); CHLORIDE 106 MMOL/L (99-107); GLUCOSE 144 MG/DL (70-104); MAGNESIUM 1.7 MG/DL (1.5-2.4); POTASSIUM 4.4 MMOL/L (3.5-5.1); SODIUM 140 MMOL/L (135-145); TOTAL CARBON DIOXIDE 30.5 MMOL/L (24-32); TOTAL PROTEIN 4.5 G/DL (6.4-8.2); eGFR 20 ML/MIN
[2019-01-13] MEDS: lactobacillus rhamnosus 10,000 MMU CELLS/CAPSULE PO SCH ×2 (08:49→20:31)
[2019-01-13] MEDS: pantoprazole 40mg Tablet.DR PO SCH (08:49)
[2019-01-13] MEDS: carVEDilol 12.5mg tablet PO SCH ×2 (08:49→20:31)
[2019-01-13] MEDS: aspirin 81mg tablet.DR PO SCH (08:50)
[2019-01-13] MEDS: clopidogrel 75mg tablet PO SCH (08:50)
[2019-01-13] MEDS: gabapentin 300mg capsule PO SCH (08:50)
[2019-01-13] MEDS: isosorbide mononitrate 30mg tab.SR.24H PO SCH (08:50)
[2019-01-13] MEDS: duloxetine 20mg capsule.DR PO SCH (08:50)
[2019-01-13] MEDS: cloNIDine 0.1 mg tablet PO SCH ×3 (08:50→20:31)
[2019-01-13] MEDS: sevelamer carbonate 0.8gm powder pkt PO SCH ×3 (08:51→16:40)
[2019-01-13] MEDS: insulin Lispro (HumaLOG) vial - multi-dose SQ SCH ×3 (09:05→20:42)
[2019-01-13] MEDS: sodium ferric gluc complex inj 125 MG in normal saline 100ml IV soln 100 ML IV SCH (09:36)
[2019-01-13 11:00] VITALS: BP 182/83
[2019-01-13] MEDS: hydrALAZINE 20mg/ml inj. IV PRN (13:33)
--- NOTE | 2019-01-13 18:10 | NUR ---
Patient in room [facility]. I have received report from Patricia BENSON and had the opportunity to ask questions and assume patient care.
--- NOTE | 2019-01-13 18:20 | NUR ---
Problems reprioritized. Patient report given, questions answered & plan of care reviewed with KELLEY Ross.
[2019-01-13 20:00] VITALS: BP 153/85
[2019-01-13] MEDS: atorvastatin 20mg tablet PO SCH (20:31)
[2019-01-13] MEDS: insulin glargine (Lantus) pen - multi-dose SQ SCH (22:05)
[2019-01-14] VITALS: BP 151/81
[2019-01-14] MEDS: clindamycin 300mg/D5W 50mL 50 ML IV SCH ×4 (02:44→20:40)
[2019-01-14 06:30] VITALS: BP 142/75
--- NOTE | 2019-01-14 06:30 | NUR ---
Patient in room [facility]. I have received report from KELLEY Ross and had the opportunity to ask questions and assume patient care.
[2019-01-14 06:57] LABS: BASOPHILS # (AUTO) 0.1 X10'3 (0-0.2); BASOPHILS % (AUTO) 0.9 % (0-1); EOSINOPHILS # (AUTO) 0.4 X10'3 (0-0.9); EOSINOPHILS % (AUTO) 3.5 % (0-6); HEMATOCRIT 26.5 % (35.0-45.0); HEMOGLOBIN 8.7 g/dl (12.0-16.0); LYMPHOCYTES # (AUTO) 1.4 X10'3 (1.1-4.8); LYMPHOCYTES % (AUTO) 12.2 % (21-51); MEAN CORPUSCULAR HEMOGLOBIN 30.3 PG (27.0-31.0); MEAN CORPUSCULAR VOLUME 91.8 FL (78-98); MONOCYTES # (AUTO) 1.6 X10'3 (0-0.9); MONOCYTES % (AUTO) 13.8 % (2-12); NEUTROPHILS # (AUTO) 7.9 X10'3 (1.8-7.7); NEUTROPHILS % (AUTO) 69.6 % (42-75); PLATELET COUNT 489 X10'3 (140-440); RED BLOOD COUNT 2.89 X10'6 (4.20-5.60); RED CELL DISTRIBUTION WIDTH 15.8 % (11.5-14.5); WHITE BLOOD COUNT 11.4 X10'3 (4.5-11.0)
[2019-01-14 07:06] LABS: ALANINE AMINOTRANSFERASE 24 U/L (12-78); ALBUMIN 1.2 G/DL (3.4-5.0); ALBUMIN/GLOBULIN RATIO 0.4 (1.1-1.5); ALKALINE PHOSPHATASE 115 IU/L (46-116); ANION GAP 7 (8-16); ASPARTATE AMINO TRANSFERASE 24 U/L (10-37); BILIRUBIN,TOTAL 0.2 MG/DL (0.1-1.0); BLOOD UREA NITROGEN 21 MG/DL (7-18); BUN/CREATININE RATIO 7.6 (6.6-38.0); CALCIUM 7.2 MG/DL (8.5-10.1); CHLORIDE 106 MMOL/L (99-107); CREATININE 2.76 MG/DL (0.40-0.90); GLUCOSE 98 MG/DL (70-104); MAGNESIUM 1.7 MG/DL (1.5-2.4); PHOSPHORUS 4.5 MG/DL (2.3-4.5); POTASSIUM 4.3 MMOL/L (3.5-5.1); SODIUM 139 MMOL/L (135-145); TOTAL CARBON DIOXIDE 26.2 MMOL/L (24-32); TOTAL PROTEIN 4.5 G/DL (6.4-8.2); eGFR 19 ML/MIN
[2019-01-14] MEDS: carVEDilol 12.5mg tablet PO SCH ×2 (07:43→20:40)
[2019-01-14] MEDS: pantoprazole 40mg Tablet.DR PO SCH (07:43)
[2019-01-14] MEDS: lactobacillus rhamnosus 10,000 MMU CELLS/CAPSULE PO SCH ×2 (07:43→20:40)
[2019-01-14] MEDS: duloxetine 20mg capsule.DR PO SCH (07:43)
[2019-01-14] MEDS: cloNIDine 0.1 mg tablet PO SCH ×3 (07:43→20:40)
[2019-01-14] MEDS: isosorbide mononitrate 30mg tab.SR.24H PO SCH (07:43)
[2019-01-14] MEDS: gabapentin 300mg capsule PO SCH (07:44)
[2019-01-14] MEDS: aspirin 81mg tablet.DR PO SCH (07:44)
[2019-01-14] MEDS: sevelamer carbonate 0.8gm powder pkt PO SCH ×3 (07:44→17:18)
[2019-01-14] MEDS: clopidogrel 75mg tablet PO SCH (07:44)
[2019-01-14] MEDS: sodium ferric gluc complex inj 125 MG in normal saline 100ml IV soln 100 ML IV SCH (09:33)
[2019-01-14 11:00] VITALS: BP 147/83
[2019-01-14] MEDS: insulin Lispro (HumaLOG) vial - multi-dose SQ SCH (13:50)
--- NOTE | 2019-01-14 14:50 | NUR ---
Reassessment: Pt PO continues to fluctuate between 75% avg and 25% avg w/ some meal refusals. Large BM 01/12 per EMR. Pt to transfer to [facility] tomorrow w/ d/c orders in place per MD note. IF pt remains; would benefit from ONS to meet needs on HD. Rec: 1. continue renal/carb controlled diet per MD 2. phosphorus binder per MD 3. IF no d/c to [facility] tomorrow AM; [facility] 4. wt w/ HD Addendum: 01/14/19 at [address] Amended: Links added.
--- NOTE | 2019-01-14 18:10 | NUR ---
Patient in room [facility]. I have received report from Patricia BENSON and had the opportunity to ask questions and assume patient care.
--- NOTE | 2019-01-14 18:20 | NUR ---
Problems reprioritized. Patient report given, questions answered & plan of care reviewed with KELLEY Ross.
[2019-01-14 20:00] VITALS: BP 128/73
[2019-01-14] MEDS: atorvastatin 20mg tablet PO SCH (20:40)
[2019-01-14] MEDS: insulin glargine (Lantus) pen - multi-dose SQ SCH (21:47)
[2019-01-14] MEDS: hydrALAZINE 20mg/ml inj. IV PRN (23:00)
[2019-01-15] VITALS: BP 163/92
[2019-01-15 01:10] VITALS: BP 135/78
[2019-01-15] MEDS: clindamycin 300mg/D5W 50mL 50 ML IV SCH ×3 (01:52→13:08)
--- NOTE | 2019-01-15 06:10 | NUR ---
Patient in room [facility]. I have received report from KELLEY Ross and had the opportunity to ask questions and assume patient care.
[2019-01-15 06:11] LABS: HEMATOCRIT 25.8 % (35.0-45.0); HEMOGLOBIN 8.6 g/dl (12.0-16.0); MEAN CORPUSCULAR HGB CONC 33.5 g/dL (33.0-36.5); MEAN CORPUSCULAR VOLUME 92.5 FL (78-98); PLATELET COUNT 460 X10'3 (140-440); RED BLOOD COUNT 2.79 X10'6 (4.20-5.60); RED CELL DISTRIBUTION WIDTH 15.9 % (11.5-14.5); WHITE BLOOD COUNT 9.3 X10'3 (4.5-11.0)
--- NOTE | 2019-01-15 06:27 | NUR ---
Problems reprioritized. Patient report given, questions answered & plan of care reviewed with Patricia RN.
[2019-01-15 06:30] VITALS: BP 114/72
[2019-01-15] MEDS ORDERED: normal saline 1000ml 250 ML IV PRN (08:00)
[2019-01-15] MEDS ORDERED: heparin 1,000unit/ml 10ml vial 10 ML IV ONE (08:00)
[2019-01-15] MEDS ORDERED: epoetin 20,000 units/ml inj IV ONE (08:00)
[2019-01-15] MEDS ORDERED: heparin 1,000 units/ml 10ml inj HE ONE ×2 (08:00)
[2019-01-15] MEDS: bisacodyl 10mg suppository rectal RC PRN (08:52)
[2019-01-15] MEDS: cloNIDine 0.1 mg tablet PO SCH ×2 (08:52→13:07)
[2019-01-15] MEDS: duloxetine 20mg capsule.DR PO SCH (08:52)
[2019-01-15] MEDS: aspirin 81mg tablet.DR PO SCH (08:52)
[2019-01-15] MEDS: isosorbide mononitrate 30mg tab.SR.24H PO SCH (08:52)
[2019-01-15] MEDS: gabapentin 300mg capsule PO SCH (08:52)
[2019-01-15] MEDS: lactobacillus rhamnosus 10,000 MMU CELLS/CAPSULE PO SCH (08:52)
[2019-01-15] MEDS: pantoprazole 40mg Tablet.DR PO SCH (08:52)
[2019-01-15] MEDS: clopidogrel 75mg tablet PO SCH (08:52)
[2019-01-15] MEDS: sevelamer carbonate 0.8gm powder pkt PO SCH ×2 (08:52→13:07)
[2019-01-15] MEDS: carVEDilol 12.5mg tablet PO SCH (08:52)
[2019-01-15] MEDS: insulin Lispro (HumaLOG) vial - multi-dose SQ SCH (09:03)
[2019-01-15] MEDS: sodium ferric gluc complex inj 125 MG in normal saline 100ml IV soln 100 ML IV SCH (09:38)
[2019-01-15] MEDS: scopolamine 1.5mg patch.TD72 TD SCH (10:26)
[2019-01-15 11:00] VITALS: BP 139/81
--- NOTE | 2019-01-15 13:50 | NUR ---
DC inst provided to pt. IV DC'd, tip intact. All belongings sent w/pt. WC to front lobby.
--- NOTE | 2019-01-15 14:47 | NUR ---
Pt refused lunch tray due to did not want the food that was sent. Pt had requested a turkey sandwich instead. Pt just finished eating the sandwich, therefore too late to cover the insulin. notified. No orders received.
--- NOTE | 2019-01-15 16:50 | NUR ---
Pt transferred to [facility] via [facility]. IV intact.
== END 2019-01-15 17:05 | DRG 517 ==
LOC: ER 22:39 → SUR 3N 12-31 01:36
PROVIDERS: ADMIT Internal Medicine; ATTEND Family Medicine
PROC: 30233N1 Transfusion of Nonautologous Red Blood Cells into Peripheral Vein, Percutaneous Approach (ICD-10-PCS; principal; 2019-01-04)
PROC: 0JH63XZ Insertion of Tunneled Vascular Access Device into Chest Subcutaneous Tissue and Fascia, Percutaneous Approach (ICD-10-PCS; 2019-01-04)
PROC: 02HV33Z Insertion of Infusion Device into Superior Vena Cava, Percutaneous Approach (ICD-10-PCS; 2019-01-04)
PROC: B548ZZA Ultrasonography of Superior Vena Cava, Guidance (ICD-10-PCS; 2019-01-04)
PROC: B5181ZA Fluoroscopy of Superior Vena Cava using Low Osmolar Contrast, Guidance (ICD-10-PCS; 2019-01-04)
PROC: 5A1D70Z Performance of Urinary Filtration, Intermittent, Less than 6 Hours Per Day (ICD-10-PCS; 2019-01-04)
PROC: 5A1D70Z Performance of Urinary Filtration, Intermittent, Less than 6 Hours Per Day (ICD-10-PCS; 2019-01-05)
PROC: 0DJ08ZZ Inspection of Upper Intestinal Tract, Via Natural or Artificial Opening Endoscopic (ICD-10-PCS; 2019-01-06)
PROC: 0DJ08ZZ Inspection of Upper Intestinal Tract, Via Natural or Artificial Opening Endoscopic (ICD-10-PCS; 2019-01-06)
PROC: 5A1D70Z Performance of Urinary Filtration, Intermittent, Less than 6 Hours Per Day (ICD-10-PCS; 2019-01-08)
PROC: 5A1D70Z Performance of Urinary Filtration, Intermittent, Less than 6 Hours Per Day (ICD-10-PCS; 2019-01-10)
PROC: 0UDB8ZX Extraction of Endometrium, Via Natural or Artificial Opening Endoscopic, Diagnostic (ICD-10-PCS; 2019-01-11)
PROC: 0UB98ZX Excision of Uterus, Via Natural or Artificial Opening Endoscopic, Diagnostic (ICD-10-PCS; 2019-01-11)
PROC: 5A1D70Z Performance of Urinary Filtration, Intermittent, Less than 6 Hours Per Day (ICD-10-PCS; 2019-01-12)
PROC: 5A1D70Z Performance of Urinary Filtration, Intermittent, Less than 6 Hours Per Day (ICD-10-PCS; 2019-01-15)
DX: D25.9 Leiomyoma of uterus, unspecified (principal); E43 Unspecified severe protein-calorie malnutrition; N17.0 Acute kidney failure with tubular necrosis; I50.9 Heart failure, unspecified; I13.0 Hypertensive heart and chronic kidney disease with heart failure and stage 1 through stage 4 chronic kidney disease, or unspecified chronic kidney disease; E87.2 Acidosis; E86.0 Dehydration; E11.21 Type 2 diabetes mellitus with diabetic nephropathy; E11.40 Type 2 diabetes mellitus with diabetic neuropathy, unspecified; E11.319 Type 2 diabetes mellitus with unspecified diabetic retinopathy without macular edema; E78.5 Hyperlipidemia, unspecified; E88.09 Other disorders of plasma-protein metabolism, not elsewhere classified; G43.909 Migraine, unspecified, not intractable, without status migrainosus; I25.10 Atherosclerotic heart disease of native coronary artery without angina pectoris; E66.01 Morbid (severe) obesity due to excess calories; E87.5 Hyperkalemia; D63.8 Anemia in other chronic diseases classified elsewhere; L89.611 Pressure ulcer of right heel, stage 1; N92.0 Excessive and frequent menstruation with regular cycle; L03.119 Cellulitis of unspecified part of limb; K29.70 Gastritis, unspecified, without bleeding; N18.9 Chronic kidney disease, unspecified; Z87.891 Personal history of nicotine dependence; I25.2 Old myocardial infarction; Z79.899 Other long term (current) drug therapy; Z68.34 Body mass index [BMI] 34.0-34.9, adult; Z79.82 Long term (current) use of aspirin; Z98.891 History of uterine scar from previous surgery; Z98.51 Tubal ligation status; Z90.49 Acquired absence of other specified parts of digestive tract; Z95.5 Presence of coronary angioplasty implant and graft
CPT/HCPCS: 36415; 36558; 43235; 71045; 73620; 73630; 73700; 74176; 76775; 76856; 76937; 77001; 80048; 80053; 81001; 82272; 82570; 82728; 82948; 83036; 83540; 83550; 83605; 83735; 83880; 84100; 84132; 84145; 84156; 84300; 85025; 85027; 85610; 85730; 86160; 86703; 86705; 86706; 86803; 86885; 86900; 86901; 86920; 87040; 87081; 87088; 87207; 87340; 93005; 93306; 94760; 97110; 97116; 97161; 97530; 99152; 99285; A4355; A4618; A4620; A9270; C1750; C1894; C9113; G0257; G0378; J0360; J1644; J1815; J1940; J2150; J2250; J2405; J2704; J2765; J2916; J3010; J3490; J7030; J7040; J7120; P9016; Q0169; Q4081

== ENCOUNTER 2019-02-27 21:12 | Emergency (ER) | payer MEDICAID ==
[~2019-02-27] VITALS: Ht 170.2 cm; Wt 93.0 kg
[~2019-02-27 21:12] MED LIST: ALBU18HF2 INH; ASPI81TA52 PO; ATOR80TA PO; BUME1TAB8 PO; CARV-50 PO; CLOP75TA35 PO; DULO20CA50 PO; FURO-150 PO; GABA800T11 PO; GLIM4TAB PO; HYDR-3965 PO; ISOS30TA6 PO; LOSA25TA96 PO; OLAN2.5T3 PO; POTA-82 PO
[2019-02-27] MEDS ORDERED: cloNIDine 0.1 mg tablet PO ONE (22:15)
[2019-02-27 22:40] LABS: BASOPHILS # (AUTO) 0.1 X10'3 (0-0.2); BASOPHILS % (AUTO) 1.5 % (0-1); EOSINOPHILS # (AUTO) 0.2 X10'3 (0-0.9); EOSINOPHILS % (AUTO) 4.2 % (0-6); HEMATOCRIT 38.4 % (35.0-45.0); HEMOGLOBIN 12.6 g/dl (12.0-16.0); LYMPHOCYTES # (AUTO) 1.6 X10'3 (1.1-4.8); MEAN CORPUSCULAR HEMOGLOBIN 30.4 PG (27.0-31.0); MEAN CORPUSCULAR HGB CONC 32.9 g/dL (33.0-36.5); MEAN CORPUSCULAR VOLUME 92.4 FL (78-98); MONOCYTES # (AUTO) 0.8 X10'3 (0-0.9); MONOCYTES % (AUTO) 15.1 % (2-12); NEUTROPHILS # (AUTO) 2.4 X10'3 (1.8-7.7); NEUTROPHILS % (AUTO) 47.2 % (42-75); PLATELET COUNT 312 X10'3 (140-440); RED BLOOD COUNT 4.15 X10'6 (4.20-5.60); WHITE BLOOD COUNT 5.1 X10'3 (4.5-11.0)
[2019-02-27 22:54] LABS: ALANINE AMINOTRANSFERASE 24 U/L (12-78); ALBUMIN 1.7 G/DL (3.4-5.0); ALBUMIN/GLOBULIN RATIO 0.5 (1.1-1.5); ALKALINE PHOSPHATASE 99 IU/L (46-116); ANION GAP -1 (8-16); ASPARTATE AMINO TRANSFERASE 28 U/L (10-37); BILIRUBIN,TOTAL 0.2 MG/DL (0.1-1.0); BLOOD UREA NITROGEN 9 MG/DL (7-18); BUN/CREATININE RATIO 9.7 (6.6-38.0); CALCIUM 7.7 MG/DL (8.5-10.1); CHLORIDE 105 MMOL/L (99-107); CREATININE 0.93 MG/DL (0.40-0.90); GLUCOSE 232 MG/DL (70-104); POTASSIUM 3.9 MMOL/L (3.5-5.1); SODIUM 138 MMOL/L (135-145); TOTAL CARBON DIOXIDE 33.5 MMOL/L (24-32); TOTAL PROTEIN 5.1 G/DL (6.4-8.2); eGFR 65 ML/MIN
[2019-02-27] MEDS ORDERED: nitroGLYCERIN 0.4mg/hour patch TD ONE (23:55)
[2019-02-28] MEDS ORDERED: minoxidil 2.5mg tablet PO ONE (00:15)
[2019-02-28 00:18] LABS: TOTAL CELLS COUNTED 100
[2019-02-28 00:19] LABS: PLATELET ESTIMATE NORMAL
[2019-02-28 00:20] LABS: ANISOCYTOSIS FEW
[2019-02-28] MEDS ORDERED: labetalol 100mg tablet PO ONE (01:30)
[2019-02-28] MEDS ORDERED: hydrALAZINE 20mg/ml inj. IV ONE (01:30)
[2019-02-28] MEDS ORDERED: labetalol 100mg tablet PO SCH (01:30)
--- NOTE | 2019-02-28 03:10 | NUR ---
ASSUMED CARE OF PT RECEIVED REPORT FROM SANDRA BENSON WHO REPORTED REMOVING NITRO PATCH AT APPROX 0210AM
--- NOTE | 2019-02-28 05:03 | NUR ---
PT SLEEPING PEACFULLY ON HER RIGHT SIDE ALL VSS . PT WITHOUT TRANSPORTATION . PT LIVES OUTSIDE OF [place] . PT WAS BIB BY EMS FROM [facility] IN WHICH PROVIDES HER HER TRANSPORTATION HOME. DR ALVARADO AWARE. WILL CONTINUE TO MONITOR HER BP
[2019-02-28 05:57] VITALS: BP 112/68
--- NOTE | 2019-02-28 07:00 | NUR ---
TRANSPORT ARRANGED WITH [facility], NO DRIVERS CURRENTLY AVAILABLE. WILL CALL BACK WHEN THEY HAVE FOUND AN AVAILABLE TRAFFIC LAW ATTORNEY.
--- NOTE | 2019-02-28 07:05 | NUR ---
[facility] IS AVAILABLE FOR TRANSPORT. ETA [id number].
== END 2019-02-28 09:17 | disposition home or self-care (01) ==
LOC: ER 21:12
DX: I13.2 Hypertensive heart and chronic kidney disease with heart failure and with stage 5 chronic kidney disease, or end stage renal disease (principal); E11.22 Type 2 diabetes mellitus with diabetic chronic kidney disease; N18.6 End stage renal disease; I50.9 Heart failure, unspecified; I25.10 Atherosclerotic heart disease of native coronary artery without angina pectoris; I25.2 Old myocardial infarction; Z99.2 Dependence on renal dialysis; Z90.49 Acquired absence of other specified parts of digestive tract; Z90.89 Acquired absence of other organs; Z98.51 Tubal ligation status; Z98.890 Other specified postprocedural states; Z95.5 Presence of coronary angioplasty implant and graft; Z79.82 Long term (current) use of aspirin; Z79.899 Other long term (current) drug therapy
CPT/HCPCS: 80053; 85025; 93005; 96374; 99284; J0360

== ENCOUNTER 2020-02-25 01:23 | Inpatient (IN) | payer MEDICARE, MEDICAID ==
[~2020-02-25] VITALS: Ht 170.2 cm; Wt 108.7 kg
[2020-02-25] VITALS (10 sets, daily range): BP systolic 111–165; BP diastolic 66–93
[~2020-02-25 01:23] MED LIST changes: -ALBU18HF2 INH; +AMIT25TA10 PO; -ATOR80TA PO; -BUME1TAB8 PO; -CARV-50 PO; -DULO20CA50 PO; +FOLI0.4T14 PO; -FURO-150 PO; -GLIM4TAB PO; -HYDR-3965 PO; +INSU100I45 SQ; +INSU100V9 SQ; -ISOS30TA6 PO; +LACT1CAP26 PO; -LOSA25TA96 PO; -OLAN2.5T3 PO; -POTA-82 PO
[2020-02-25] MEDS ORDERED: fentaNYL/PF 50MCG/1 ML 2ML syringe IV ONE (01:50)
[2020-02-25] MEDS ORDERED: ondansetron/PF 4mg/2ml inj IV ONE (01:50)
[2020-02-25] MEDS ORDERED: INSU100C10 SQ (02:29)
[2020-02-25] MEDS ORDERED: morphine 2 MG/ML inj. syringe IV PRN (02:35)
[2020-02-25] MEDS ORDERED: normal saline 1000ml 1,000 ML IV SCH (02:35)
[2020-02-25] MEDS ORDERED: acetaminophen 325mg tablet PO PRN (02:35)
[2020-02-25] MEDS ORDERED: ondansetron/PF 4mg/2ml inj IV PRN (02:35)
[2020-02-25] MEDS ORDERED: glucagon, human recombinant 1mg kit SUBCUT PRN (03:00)
[2020-02-25] MEDS ORDERED: dextrose 50%-water 50ml dispensing syringe IV PRN ×2 (03:00)
[2020-02-25] MEDS ORDERED: dextrose ORAL solution 15 GM/59 ML bottle PO PRN ×2 (03:00)
[2020-02-25] MEDS ORDERED: MESSAGE TO PHARMACY PO ONE (03:00)
[2020-02-25 03:22] LABS: BASOPHILS # (AUTO) 0.1 X10'3 (0-0.2); BASOPHILS % (AUTO) 1.1 % (0-1); EOSINOPHILS # (AUTO) 0.3 X10'3 (0-0.9); EOSINOPHILS % (AUTO) 3.2 % (0-6); LYMPHOCYTES # (AUTO) 1.4 X10'3 (1.1-4.8); LYMPHOCYTES % (AUTO) 13.4 % (21-51); MEAN CORPUSCULAR HEMOGLOBIN 30.9 PG (27.0-31.0); MEAN CORPUSCULAR HGB CONC 33.1 g/dL (33.0-36.5); MEAN CORPUSCULAR VOLUME 93.5 FL (78-98); MEAN PLATELET VOLUME 6.9 FL (7.4-10.4); MONOCYTES # (AUTO) 1.5 X10'3 (0-0.9); NEUTROPHILS # (AUTO) 7.4 X10'3 (1.8-7.7); NEUTROPHILS % (AUTO) 68.3 % (42-75); PLATELET COUNT 484 X10'3 (140-440); RED BLOOD COUNT 2.27 X10'6 (4.20-5.60); RED CELL DISTRIBUTION WIDTH 15.2 % (11.5-14.5); WHITE BLOOD COUNT 10.8 X10'3 (4.5-11.0)
[2020-02-25 03:31] LABS: HEMATOCRIT 21.3 % (35.0-45.0)
--- NOTE | 2020-02-25 03:33 | NUR ---
DISCUSSED CRITICAL H&H WITH DILAN VARELA. ORDER TO BLOOD BAND AND GET PINK TOPS.
[2020-02-25 03:34] LABS: ALANINE AMINOTRANSFERASE 12 U/L (12-78); ALBUMIN 2.1 G/DL (3.4-5.0); ALBUMIN/GLOBULIN RATIO 0.5 (1.1-1.5); ALKALINE PHOSPHATASE 102 IU/L (46-116); ANION GAP 7 (8-16); ASPARTATE AMINO TRANSFERASE 14 U/L (10-37); BILIRUBIN,TOTAL 0.3 MG/DL (0.1-1.0); BLOOD UREA NITROGEN 24 MG/DL (7-18); BUN/CREATININE RATIO 10.1 (6.6-38.0); CALCIUM 7.7 MG/DL (8.5-10.1); CHLORIDE 102 MMOL/L (99-107); CREATININE 2.38 MG/DL (0.40-0.90); GLUCOSE 146 MG/DL (70-104); MAGNESIUM 1.8 MG/DL (1.5-2.4); PHOSPHORUS 4.5 MG/DL (2.3-4.5); POTASSIUM 4.6 MMOL/L (3.5-5.1); SODIUM 135 MMOL/L (135-145); TOTAL CARBON DIOXIDE 26.3 MMOL/L (24-32); TOTAL PROTEIN 6.2 G/DL (6.4-8.2); eGFR 22 ML/MIN
[2020-02-25 03:41] LABS: HEMOGLOBIN A1C 6.3 % (4.5-6.2)
--- NOTE | 2020-02-25 04:28 | NUR ---
Patient in room ED 16. I have received report from CHAITANYA BENSON IN THE ER and had the opportunity to ask questions and will assume patient care upon arrival to the floor. Addendum: 02/25/20 at 0429 by Sirena Garcia RN Amended: Links added.
--- NOTE | 2020-02-25 04:35 | NUR ---
pt arrived to the floor on a gurney. pt states has an iud in and having light period. noted small amount dark brown discharge from rectal area. attends from home removed. skin clear dry legs.1-2 plus ankle edema. lungs clear pt pleasant.
--- NOTE | 2020-02-25 06:00 | NUR ---
Patient in room [facility]. I have received report from Leonard BENSON and had the opportunity to ask questions and assume patient care.
--- NOTE | 2020-02-25 06:13 | NUR ---
Patient in room [facility]. I have received report from CATRACHITA BENSON and had the opportunity to ask questions and assume patient care.
--- NOTE | 2020-02-25 06:38 | NUR ---
Problems reprioritized. Patient report given, questions answered & plan of care reviewed with BERTRAM BENSON. Addendum: 02/25/20 at 0639 by Sirena Garcia RN Amended: Links added.
[2020-02-25 07:16] LABS: PARTIAL THROMBOPLASTIN TIME 29 SECONDS (22-32)
[2020-02-25] MEDS ORDERED: normal saline 1000ml 100 ML IV PRN (07:40)
[2020-02-25] MEDS ORDERED: normal saline 1000ml 250 ML IV PRN (07:40)
[2020-02-25] MEDS: ciprofloxacin lact 400MG/200ML 200 ML IV SCH (08:19)
--- NOTE | 2020-02-25 09:00 | NUR ---
PATIENT NPO SO WILL NOT START PATIENT ON PROTOCOL AT THIS TIME.
[2020-02-25 09:07] LABS: TOTAL CELLS COUNTED 100
[2020-02-25 09:08] LABS: ANISOCYTOSIS 1+; LARGE PLATELETS FEW; PLATELET ESTIMATE INCREASED
[2020-02-25 09:09] LABS: POLYCHROMASIA 1+
[2020-02-25] MEDS: HYDROmorphone inj. 0.5 MG/0.5 ML DISP.SYRIN IV PRN ×3 (09:14→17:34)
[2020-02-25] MEDS: piperacillin/tazo 3.375gm/50ml 50 ML IV SCH ×2 (10:12→16:08)
[2020-02-25] MEDS: aspirin 81mg tablet.DR PO SCH (11:04)
[2020-02-25] MEDS: clopidogrel 75mg tablet PO SCH (11:04)
--- NOTE | 2020-02-25 12:12 | NUR ---
Student documentation: I have reviewed and agree with all interventions, assessments performed and documented by Chay, nursing secretary.
[2020-02-25] MEDS: gabapentin 400mg capsule PO SCH (12:14)
--- NOTE | 2020-02-25 12:30 | NUR ---
PATIENT RECEIVING BLOOD AT THIS TIME AND WILL FORGO GETTING A BLOOD SUGAR AT THIS TIME. WILL CONTINUE AT LATER DOSING.
[2020-02-25 15:04] LABS: HEMATOCRIT 24.8 % (35.0-45.0); HEMOGLOBIN 7.9 g/dl (12.0-16.0); MEAN CORPUSCULAR HEMOGLOBIN 29.3 PG (27.0-31.0); MEAN CORPUSCULAR HGB CONC 31.8 g/dL (33.0-36.5); MEAN CORPUSCULAR VOLUME 92.2 FL (78-98); PLATELET COUNT 443 X10'3 (140-440); RED BLOOD COUNT 2.69 X10'6 (4.20-5.60); RED CELL DISTRIBUTION WIDTH 16.9 % (11.5-14.5); WHITE BLOOD COUNT 11.3 X10'3 (4.5-11.0)
[2020-02-25] MEDS ORDERED: CADD PCA waste documentation MC PRN (17:55)
[2020-02-25] MEDS ORDERED: naloxone 0.4 mg/ml inj IV PRN (17:55)
--- NOTE | 2020-02-25 18:18 | NUR ---
Problems reprioritized. Patient report given, questions answered & plan of care reviewed with CATRACHITA BENSON
[2020-02-25] MEDS: HYDROmorphone/NS 1 mg/ml CADD 50 ML IV SCH ×3 (19:54→23:00)
[2020-02-25] MEDS: lactobacillus rhamnosus 10,000 MMU CELLS/CAPSULE PO SCH (20:15)
[2020-02-25] MEDS: amitriptyline 25mg tablet PO SCH (20:21)
[2020-02-25] MEDS: insulin glargine (Lantus) pen - multi-dose SQ SCH (20:29)
[2020-02-25] MEDS ORDERED: INSULIN GLARGINE HUM REC ANLOG 42 UNIT SQ SCH (21:00)
[2020-02-26] VITALS: BP 120/75
[2020-02-26] MEDS: piperacillin/tazo 3.375gm/50ml 50 ML IV SCH ×4 (00:23→23:50)
[2020-02-26] MEDS: HYDROmorphone/NS 1 mg/ml CADD 50 ML IV SCH ×12 (00:23→23:00)
[2020-02-26 05:48] LABS: BASOPHILS # (AUTO) 0.1 X10'3 (0-0.2); BASOPHILS % (AUTO) 1.1 % (0-1); EOSINOPHILS # (AUTO) 0.3 X10'3 (0-0.9); EOSINOPHILS % (AUTO) 3.2 % (0-6); HEMOGLOBIN 8.6 g/dl (12.0-16.0); LYMPHOCYTES # (AUTO) 1.2 X10'3 (1.1-4.8); MEAN CORPUSCULAR HEMOGLOBIN 29.8 PG (27.0-31.0); MEAN CORPUSCULAR VOLUME 90.2 FL (78-98); MEAN PLATELET VOLUME 7.1 FL (7.4-10.4); MONOCYTES # (AUTO) 1.5 X10'3 (0-0.9); NEUTROPHILS # (AUTO) 6.1 X10'3 (1.8-7.7); NEUTROPHILS % (AUTO) 66.7 % (42-75); PLATELET COUNT 424 X10'3 (140-440); RED BLOOD COUNT 2.88 X10'6 (4.20-5.60); RED CELL DISTRIBUTION WIDTH 17.1 % (11.5-14.5); WHITE BLOOD COUNT 9.1 X10'3 (4.5-11.0)
[2020-02-26 05:54] LABS: ALANINE AMINOTRANSFERASE 16 U/L (12-78); ALBUMIN/GLOBULIN RATIO 0.5 (1.1-1.5); ALKALINE PHOSPHATASE 116 IU/L (46-116); ANION GAP 7 (8-16); ASPARTATE AMINO TRANSFERASE 14 U/L (10-37); BILIRUBIN,TOTAL 0.5 MG/DL (0.1-1.0); BLOOD UREA NITROGEN 27 MG/DL (7-18); BUN/CREATININE RATIO 8.9 (6.6-38.0); CALCIUM 8.4 MG/DL (8.5-10.1); CHLORIDE 103 MMOL/L (99-107); CREATININE 3.03 MG/DL (0.40-0.90); GLUCOSE 157 MG/DL (70-104); PHOSPHORUS 4.6 MG/DL (2.3-4.5); POTASSIUM 5.1 MMOL/L (3.5-5.1); SODIUM 136 MMOL/L (135-145); TOTAL CARBON DIOXIDE 26.1 MMOL/L (24-32); TOTAL PROTEIN 6.2 G/DL (6.4-8.2); eGFR 17 ML/MIN
--- NOTE | 2020-02-26 06:05 | NUR ---
Problems reprioritized. Patient report given, questions answered & plan of care reviewed with BERTRAM BENSON. Addendum: 02/26/20 at 0607 by Sirena Garcia RN Amended: Links added.
--- NOTE | 2020-02-26 06:23 | NUR ---
Patient in room [facility]. I have received report from mat rn and had the opportunity to ask questions and assume patient care.
--- NOTE | 2020-02-26 06:36 | NUR ---
Patient in room [facility]. I have received report from Sirena BENSON and had the opportunity to ask questions and assume patient care.
[2020-02-26] MEDS: ciprofloxacin lact 400MG/200ML 200 ML IV SCH (07:30)
[2020-02-26] MEDS: gabapentin 400mg capsule PO SCH (08:04)
[2020-02-26] MEDS: folic acid 1mg tablet PO SCH (08:05)
[2020-02-26] MEDS: lactobacillus rhamnosus 10,000 MMU CELLS/CAPSULE PO SCH ×2 (08:06→21:05)
[2020-02-26 08:35] VITALS: BP 141/85
[2020-02-26 08:36] LABS: ANISOCYTOSIS 1+; PLATELET ESTIMATE NORMAL; TOTAL CELLS COUNTED 100
[2020-02-26 08:37] LABS: HYPOCHROMASIA 1+; POLYCHROMASIA FEW
[2020-02-26] MEDS ORDERED: heparin 1,000 units/ml 10ml inj HE ONE ×2 (09:45)
[2020-02-26] MEDS: clopidogrel 75mg tablet PO SCH (10:35)
[2020-02-26] MEDS: aspirin 81mg tablet.DR PO SCH (10:40)
--- NOTE | 2020-02-26 11:20 | NUR ---
Student documentation: I have reviewed and agree with all interventions, assessments performed and documented by Adrien, nursing unit manager.
--- NOTE | 2020-02-26 11:20 | NUR ---
Student Medication Administration: For this medication-pass time frame, all medication were reviewed, dispensed, administered and documented per hospital policy by Adrien professional nursing tutor.
--- NOTE | 2020-02-26 17:27 | NUR ---
Problems reprioritized. Patient report given, questions answered & plan of care reviewed with Leonard RN.
--- NOTE | 2020-02-26 18:24 | NUR ---
I have received report from Leonard BENSON and had the opportunity to ask questions and assume patient care.
--- NOTE | 2020-02-26 18:33 | NUR ---
Problems reprioritized. Patient report given, questions answered & plan of care reviewed with MERA BENSON.
[2020-02-26 20:00] VITALS: BP 154/87
[2020-02-26] MEDS: insulin glargine (Lantus) pen - multi-dose SQ SCH (21:00)
[2020-02-26] MEDS: amitriptyline 25mg tablet PO SCH (21:05)
[2020-02-27] VITALS: BP 140/78
[2020-02-27] MEDS: HYDROmorphone/NS 1 mg/ml CADD 50 ML IV SCH ×12 (01:00→23:00)
[2020-02-27] MEDS: normal saline 1000ml 1,000 ML IV SCH (02:28)
--- NOTE | 2020-02-27 05:53 | NUR ---
I bladder scanned pt at 0430. bladder scan showed 513. I informed pt there was an order to straight cath if there was more than 400. pt refused to be straight cathed. pt stated she wanted to "wait a little bit longer" and she "can feel when she needs to go" pt also stated that she was "scared of infection from getting straight cathed too many times". Will continue to monitor.
[2020-02-27 06:12] LABS: BASOPHILS # (AUTO) 0.1 X10'3 (0-0.2); BASOPHILS % (AUTO) 1.3 % (0-1); EOSINOPHILS # (AUTO) 0.4 X10'3 (0-0.9); EOSINOPHILS % (AUTO) 6.5 % (0-6); HEMATOCRIT 25.7 % (35.0-45.0); HEMOGLOBIN 8.8 g/dl (12.0-16.0); LYMPHOCYTES # (AUTO) 1.1 X10'3 (1.1-4.8); LYMPHOCYTES % (AUTO) 16.4 % (21-51); MEAN CORPUSCULAR HGB CONC 34.1 g/dL (33.0-36.5); MEAN CORPUSCULAR VOLUME 90.7 FL (78-98); MEAN PLATELET VOLUME 7.2 FL (7.4-10.4); MONOCYTES # (AUTO) 1.1 X10'3 (0-0.9); MONOCYTES % (AUTO) 17.3 % (2-12); NEUTROPHILS # (AUTO) 3.8 X10'3 (1.8-7.7); NEUTROPHILS % (AUTO) 58.5 % (42-75); PLATELET COUNT 425 X10'3 (140-440); RED BLOOD COUNT 2.83 X10'6 (4.20-5.60); RED CELL DISTRIBUTION WIDTH 16.4 % (11.5-14.5); WHITE BLOOD COUNT 6.6 X10'3 (4.5-11.0)
[2020-02-27 06:29] LABS: ALANINE AMINOTRANSFERASE 12 U/L (12-78); ALBUMIN 1.8 G/DL (3.4-5.0); ALBUMIN/GLOBULIN RATIO 0.4 (1.1-1.5); ALKALINE PHOSPHATASE 120 IU/L (46-116); ANION GAP 8 (8-16); ASPARTATE AMINO TRANSFERASE 8 U/L (10-37); BILIRUBIN,TOTAL 0.3 MG/DL (0.1-1.0); BLOOD UREA NITROGEN 20 MG/DL (7-18); BUN/CREATININE RATIO 8.1 (6.6-38.0); CALCIUM 8.2 MG/DL (8.5-10.1); CHLORIDE 105 MMOL/L (99-107); CREATININE 2.47 MG/DL (0.40-0.90); GLUCOSE 205 MG/DL (70-104); PHOSPHORUS 3.8 MG/DL (2.3-4.5); POTASSIUM 4.3 MMOL/L (3.5-5.1); SODIUM 140 MMOL/L (135-145); TOTAL CARBON DIOXIDE 27.5 MMOL/L (24-32); TOTAL PROTEIN 6.1 G/DL (6.4-8.2); eGFR 21 ML/MIN
--- NOTE | 2020-02-27 06:43 | NUR ---
Problems reprioritized. Patient report given, questions answered & plan of care reviewed with Sera BENSON.
--- NOTE | 2020-02-27 07:09 | NUR ---
Patient in room [facility]. I have received report from cliff BENSON and had the opportunity to ask questions and assume patient care.
[2020-02-27] MEDS: ciprofloxacin lact 400MG/200ML 200 ML IV SCH (07:40)
[2020-02-27] MEDS: lactobacillus rhamnosus 10,000 MMU CELLS/CAPSULE PO SCH ×2 (07:44→19:37)
[2020-02-27] MEDS: folic acid 1mg tablet PO SCH (07:44)
[2020-02-27] MEDS: clopidogrel 75mg tablet PO SCH (07:44)
[2020-02-27] MEDS: aspirin 81mg tablet.DR PO SCH (07:44)
[2020-02-27] MEDS: gabapentin 400mg capsule PO SCH (07:45)
[2020-02-27 07:50] LABS: ANISOCYTOSIS 1+; HYPOCHROMASIA 1+; PLATELET ESTIMATE NORMAL; SCHISTOCYTES FEW
[2020-02-27 08:00] VITALS: BP 163/88
[2020-02-27] MEDS: piperacillin/tazo 3.375gm/50ml 50 ML IV SCH ×3 (08:55→23:39)
[2020-02-27] MEDS ORDERED: heparin 1,000unit/ml 10ml vial 10 ML IV ONE (09:45)
[2020-02-27] MEDS ORDERED: heparin 1,000 units/ml 10ml inj IV ONE (09:45)
[2020-02-27] MEDS ORDERED: heparin 1,000 units/ml 10ml inj HE ONE (09:50)
[2020-02-27 11:00] VITALS: BP 144/82
[2020-02-27] MEDS: insulin Lispro (HumaLOG) vial - multi-dose SQ SCH ×2 (13:55→19:40)
--- NOTE | 2020-02-27 14:35 | NUR ---
Pt bladder scanned and showed 800ml in her bladder. Per Doctor Neal's order OK to Straight cath pt if >400. Pt Straight cath and output is 900ml. Primary nurse Sera Salas notified.
--- NOTE | 2020-02-27 17:47 | NUR ---
patient had 507 in bladder following scan 1700hrs, did not want to be straight cathed stated she will try after dinner to void. all cares given , up to BR x1 worked with PT see note `VSS
--- NOTE | 2020-02-27 18:52 | NUR ---
Problems reprioritized. Patient report given, questions answered & plan of care reviewed with cliff BENSON.
--- NOTE | 2020-02-27 19:13 | NUR ---
I have received report from Sera BENSON and had the opportunity to ask questions and assume patient care.
[2020-02-27 20:00] VITALS: BP 148/86
[2020-02-27] MEDS: amitriptyline 25mg tablet PO SCH (22:15)
[2020-02-27] MEDS: insulin glargine (Lantus) pen - multi-dose SQ SCH (22:18)
--- NOTE | 2020-02-27 22:45 | NUR ---
Teasel Setter was called to confirm that repeat CT for pt was on 02/29/2020. I told MD there were two orders for a CT. One was on 02/27 and one was for 02/28. In the progress notes it was mentioned that the CT was 02/28. Teasel Setter stated that from the information I told him, the CT was going to be on the 02/28. I discussed the information with the supercharger repair supervisor who agreed.
[2020-02-28] VITALS: BP 150/75
[2020-02-28] MEDS: HYDROmorphone/NS 1 mg/ml CADD 50 ML IV SCH ×12 (01:00→23:00)
[2020-02-28 05:05] LABS: BASOPHILS # (AUTO) 0.1 X10'3 (0-0.2); BASOPHILS % (AUTO) 1.4 % (0-1); EOSINOPHILS # (AUTO) 0.7 X10'3 (0-0.9); EOSINOPHILS % (AUTO) 9.8 % (0-6); HEMATOCRIT 27.8 % (35.0-45.0); LYMPHOCYTES # (AUTO) 1.1 X10'3 (1.1-4.8); LYMPHOCYTES % (AUTO) 15.2 % (21-51); MEAN CORPUSCULAR HEMOGLOBIN 29.2 PG (27.0-31.0); MEAN CORPUSCULAR HGB CONC 32.4 g/dL (33.0-36.5); MEAN CORPUSCULAR VOLUME 90.2 FL (78-98); MEAN PLATELET VOLUME 7.2 FL (7.4-10.4); MONOCYTES # (AUTO) 1.2 X10'3 (0-0.9); MONOCYTES % (AUTO) 16.2 % (2-12); NEUTROPHILS # (AUTO) 4.1 X10'3 (1.8-7.7); NEUTROPHILS % (AUTO) 57.4 % (42-75); PLATELET COUNT 457 X10'3 (140-440); RED BLOOD COUNT 3.08 X10'6 (4.20-5.60); RED CELL DISTRIBUTION WIDTH 15.8 % (11.5-14.5); WHITE BLOOD COUNT 7.1 X10'3 (4.5-11.0)
[2020-02-28 05:13] LABS: ALANINE AMINOTRANSFERASE 10 U/L (12-78); ALBUMIN/GLOBULIN RATIO 0.4 (1.1-1.5); ALKALINE PHOSPHATASE 138 IU/L (46-116); ANION GAP 6 (8-16); ASPARTATE AMINO TRANSFERASE 9 U/L (10-37); BILIRUBIN,TOTAL 0.2 MG/DL (0.1-1.0); BLOOD UREA NITROGEN 22 MG/DL (7-18); BUN/CREATININE RATIO 8.5 (6.6-38.0); CALCIUM 8.5 MG/DL (8.5-10.1); CHLORIDE 105 MMOL/L (99-107); CREATININE 2.58 MG/DL (0.40-0.90); GLUCOSE 168 MG/DL (70-104); MAGNESIUM 1.9 MG/DL (1.5-2.4); PHOSPHORUS 3.9 MG/DL (2.3-4.5); POTASSIUM 4.2 MMOL/L (3.5-5.1); SODIUM 140 MMOL/L (135-145); TOTAL CARBON DIOXIDE 29.2 MMOL/L (24-32); TOTAL PROTEIN 6.5 G/DL (6.4-8.2); eGFR 20 ML/MIN
--- NOTE | 2020-02-28 06:30 | NUR ---
Patient in room [facility]. I have received report from KELLEY Hollingsworth and had the opportunity to ask questions and assume patient care.
--- NOTE | 2020-02-28 06:30 | NUR ---
Patient in room [facility]. I have received report from Corin BENSON and had the opportunity to ask questions and assume patient care.
--- NOTE | 2020-02-28 06:31 | NUR ---
Problems reprioritized. Patient report given, questions answered & plan of care reviewed with Corin BENSON.
[2020-02-28 07:11] VITALS: BP 173/100
[2020-02-28] MEDS ORDERED: heparin 1,000unit/ml 10ml vial 10 ML IV ONE (08:00)
[2020-02-28] MEDS ORDERED: heparin 1,000 units/ml 10ml inj HE ONE ×2 (08:00)
[2020-02-28] MEDS: lactobacillus rhamnosus 10,000 MMU CELLS/CAPSULE PO SCH ×2 (08:44→19:40)
[2020-02-28] MEDS: clopidogrel 75mg tablet PO SCH (08:45)
[2020-02-28] MEDS: aspirin 81mg tablet.DR PO SCH (08:47)
[2020-02-28] MEDS: folic acid 1mg tablet PO SCH (08:47)
[2020-02-28] MEDS: gabapentin 400mg capsule PO SCH (08:49)
[2020-02-28] MEDS: ciprofloxacin lact 400MG/200ML 200 ML IV SCH (08:50)
[2020-02-28] MEDS: insulin Lispro (HumaLOG) vial - multi-dose SQ SCH ×3 (09:47→18:46)
[2020-02-28 09:52] LABS: CLARITY,URINE CLEAR (Clear); COLOR,URINE YELLOW (Yellow); GLUCOSE, URINE NEGATIVE (Neg); KETONES,URINE NEGATIVE (Neg); LEUKOCYTE ESTERASE ,URINE NEGATIVE (Neg); NITRITES, URINE NEGATIVE (Neg); OCCULT BLOOD,URINE MODERATE (Neg); PROTEIN,URINE >=300 mg/dl (Neg); UROBILINOGEN,URINE 0.2 E.U/dL (0.2-1.0)
[2020-02-28] MEDS: piperacillin/tazo 3.375gm/50ml 50 ML IV SCH ×2 (09:53→17:42)
[2020-02-28 09:57] LABS: UA COLLECTION TYPE NON-SPECIFIED
[2020-02-28 10:00] LABS: HYALINE CASTS 0-3 /LPF (NEGATIVE); SQUAMOUS EPITHELIAL CELL,UR FEW /LPF (FEW)
[2020-02-28 10:01] LABS: COARSE GRANULAR CAST 0-3 /LPF (NEGATIVE)
[2020-02-28 10:02] LABS: BACTERIA,URINE 2+ /HPF (Neg); RBC,URINE 20-50 /HPF (0-2); WBC CLUMPS,URINE FEW /HPF (NEGATIVE)
--- NOTE | 2020-02-28 10:49 | NUR ---
Student Medication Administration: For this medication-pass time frame, all medication were reviewed, dispensed, administered and documented per hospital policy by Rose skilled nursing professional.
--- NOTE | 2020-02-28 10:50 | NUR ---
Student documentation: I have reviewed and agree with all interventions, assessments performed and documented by Rose, nursing educator.
[2020-02-28 11:00] VITALS: BP 135/84
[2020-02-28 18:00] VITALS: BP 147/87
--- NOTE | 2020-02-28 18:28 | NUR ---
Patient in room [facility]. I have received report from KELLEY Spain and had the opportunity to ask questions and assume patient care.
[2020-02-28] MEDS: amitriptyline 25mg tablet PO SCH (19:40)
[2020-02-28] MEDS ORDERED: diphenhydrAMINE 25mg capsule PO PRN (20:35)
[2020-02-28] MEDS: diatr meglu/diatrizoate 30ml oral sol.-(3 dose) bottle PO SCH (20:57)
--- NOTE | 2020-02-28 21:00 | NUR ---
Pt has refused to be bladder scanned at this time. Addendum: 02/29/20 at 0114 by Judit Miller RN Amended: Links added.
[2020-02-28] MEDS: insulin glargine (Lantus) pen - multi-dose SQ SCH (21:02)
[2020-02-28] MEDS: normal saline 1000ml 1,000 ML IV SCH (22:40)
--- NOTE | 2020-02-28 23:30 | NUR ---
Pt has refused to be bladder scanned and stated that she doesn't want to be bladder scanned and straight cathed so often. Pt stated that she wants to be woken up around 3 o'clock because that is her normal voiding time. Addendum: 02/29/20 at 0114 by Judit Miller RN Amended: Links added.
[2020-02-28 23:37] VITALS: BP 150/87
[2020-02-29] MEDS: piperacillin/tazo 3.375gm/50ml 50 ML IV SCH ×2 (00:04→09:56)
[2020-02-29] MEDS: HYDROmorphone/NS 1 mg/ml CADD 50 ML IV SCH ×7 (01:00→13:00)
[2020-02-29] MEDS: normal saline 1000ml 1,000 ML IV SCH (01:45)
[2020-02-29 05:11] LABS: BASOPHILS # (AUTO) 0.1 X10'3 (0-0.2); BASOPHILS % (AUTO) 1.5 % (0-1); EOSINOPHILS # (AUTO) 0.6 X10'3 (0-0.9); EOSINOPHILS % (AUTO) 8.4 % (0-6); HEMATOCRIT 30.5 % (35.0-45.0); HEMOGLOBIN 9.8 g/dl (12.0-16.0); LYMPHOCYTES # (AUTO) 1.2 X10'3 (1.1-4.8); LYMPHOCYTES % (AUTO) 16.4 % (21-51); MEAN CORPUSCULAR HEMOGLOBIN 29.1 PG (27.0-31.0); MEAN CORPUSCULAR HGB CONC 32.2 g/dL (33.0-36.5); MEAN CORPUSCULAR VOLUME 90.1 FL (78-98); MEAN PLATELET VOLUME 7.3 FL (7.4-10.4); MONOCYTES # (AUTO) 1.1 X10'3 (0-0.9); MONOCYTES % (AUTO) 14.9 % (2-12); NEUTROPHILS # (AUTO) 4.3 X10'3 (1.8-7.7); NEUTROPHILS % (AUTO) 58.8 % (42-75); PLATELET COUNT 484 X10'3 (140-440); RED BLOOD COUNT 3.38 X10'6 (4.20-5.60); RED CELL DISTRIBUTION WIDTH 15.6 % (11.5-14.5); WHITE BLOOD COUNT 7.3 X10'3 (4.5-11.0)
[2020-02-29 05:28] LABS: ALANINE AMINOTRANSFERASE 10 U/L (12-78); ALBUMIN 2.1 G/DL (3.4-5.0); ALBUMIN/GLOBULIN RATIO 0.5 (1.1-1.5); ALKALINE PHOSPHATASE 157 IU/L (46-116); ANION GAP 8 (8-16); ASPARTATE AMINO TRANSFERASE 9 U/L (10-37); BILIRUBIN,TOTAL 0.2 MG/DL (0.1-1.0); BLOOD UREA NITROGEN 21 MG/DL (7-18); BUN/CREATININE RATIO 7.5 (6.6-38.0); CALCIUM 8.5 MG/DL (8.5-10.1); CHLORIDE 102 MMOL/L (99-107); CREATININE 2.79 MG/DL (0.40-0.90); GLUCOSE 172 MG/DL (70-104); MAGNESIUM 1.9 MG/DL (1.5-2.4); POTASSIUM 4.2 MMOL/L (3.5-5.1); SODIUM 137 MMOL/L (135-145); TOTAL CARBON DIOXIDE 27.5 MMOL/L (24-32); TOTAL PROTEIN 6.6 G/DL (6.4-8.2); eGFR 18 ML/MIN
--- NOTE | 2020-02-29 06:25 | NUR ---
Problems reprioritized. Patient report given, questions answered & plan of care reviewed with Corin BENSON. Addendum: 02/29/20 at 0626 by Judit Miller RN Amended: Links added.
--- NOTE | 2020-02-29 06:28 | NUR ---
Patient in room [facility]. I have received report from KELLEY Spain and had the opportunity to ask questions and assume patient care.
--- NOTE | 2020-02-29 06:34 | NUR ---
Patient in room [facility]. I have received report from Judit BENSON and had the opportunity to ask questions and assume patient care.
[2020-02-29] MEDS: gabapentin 400mg capsule PO SCH (07:43)
[2020-02-29] MEDS: diatr meglu/diatrizoate 30ml oral sol.-(3 dose) bottle PO SCH ×2 (07:43→11:18)
[2020-02-29] MEDS: ciprofloxacin lact 400MG/200ML 200 ML IV SCH (07:43)
[2020-02-29] MEDS: clopidogrel 75mg tablet PO SCH (07:44)
[2020-02-29] MEDS: lactobacillus rhamnosus 10,000 MMU CELLS/CAPSULE PO SCH (07:44)
[2020-02-29] MEDS: aspirin 81mg tablet.DR PO SCH (07:44)
[2020-02-29] MEDS: folic acid 1mg tablet PO SCH (07:44)
[2020-02-29] MEDS: insulin Lispro (HumaLOG) vial - multi-dose SQ SCH ×2 (07:53→15:47)
[2020-02-29 08:00] VITALS: BP 142/83
[2020-02-29] MEDS ORDERED: heparin 1,000unit/ml 10ml vial 10 ML IV ONE (08:30)
[2020-02-29] MEDS ORDERED: heparin 1,000 units/ml 10ml inj HE ONE ×2 (08:35)
[2020-02-29 11:00] VITALS: BP 155/91
--- NOTE | 2020-02-29 11:23 | NUR ---
pt transported to CT via wheelchair
--- NOTE | 2020-02-29 11:36 | NUR ---
Pt back from CT
--- NOTE | 2020-02-29 12:55 | NUR ---
Pt refusing straight cath after 0800 and 1200 bladder scan. Pt was able to void 500 cc's spontaneously prior to 1200 bladder scan, however, has not been able to void again. Pt educated that a sellers catheter would need to be place and left in for 2 weeks, per Dr De Jesus. Pt reluctant to have FC placed, but states understanding for need. Pt requests to have another opportunity to attempt to void prior to placing FC. Will continue to monitor.
[2020-02-29] MEDS ORDERED: METR500T PO (14:03)
[2020-02-29] MEDS ORDERED: HYDROcodone/acetaminophen 10/325mg tab PO PRN (15:30)
[2020-02-29] MEDS ORDERED: AMOX-419 PO (15:38)
--- NOTE | 2020-02-29 16:00 | NUR ---
Bladder scan shows 538cc's urine retained. Pt states "I refuse to go home with a catheter in". Educated pt on the risks of retaining urine and pt states understanding, but continues to refuse catheter placement. Pt states, "I have an appointment with my primary in a few days and will deal with it when the issues arrives." Will continue to monitor.
--- NOTE | 2020-02-29 18:10 | NUR ---
Pt discharged to home with all belonging, via medical transport set up by hospital and patient. Discharge instructions and medications reviewed. New prescriptions called to [facility] in [place]. Pt instructed to follow up with PCP as scheduled, and to obtain referral to urologist from PCP. Pt also instructed to follow up with Dr Reyna in 1-2 weeks, phone number provided. IV DC'd, cannula intact. Pt stated understanding and willingness to comply with all discharge instructions. Pt escorted to front lobby via wheelchair by PCT.
[2020-02-29] MEDS ORDERED: metroNIDAZOLE 500mg tablet PO SCH (20:00)
--- NOTE | 2020-03-04 15:49 | NUR ---
Please disregard dialysis charges entered for 02/25/20. They were entered in error. Addendum: 03/04/20 at 1551 by Ines THOMPSON RN Amended: Links added.
== END 2020-02-29 18:10 | disposition home or self-care (01) | DRG 919 ==
LOC: ER 01:24 → ED HOLD 02:32 → EDBEDREQTM 03:31 → SUR 3N 05:35
PROVIDERS: ADMIT Internal Medicine Critical Care Medicine; ATTEND Internal Medicine Critical Care Medicine
PROC: 30233N1 Transfusion of Nonautologous Red Blood Cells into Peripheral Vein, Percutaneous Approach (ICD-10-PCS; principal; 2020-02-25)
DX: T88.8XXA Other specified complications of surgical and medical care, not elsewhere classified, initial encounter (principal); N18.6 End stage renal disease; I13.2 Hypertensive heart and chronic kidney disease with heart failure and with stage 5 chronic kidney disease, or end stage renal disease; E11.22 Type 2 diabetes mellitus with diabetic chronic kidney disease; E11.65 Type 2 diabetes mellitus with hyperglycemia; I25.10 Atherosclerotic heart disease of native coronary artery without angina pectoris; I50.9 Heart failure, unspecified; Y83.2 Surgical operation with anastomosis, bypass or graft as the cause of abnormal reaction of the patient, or of later complication, without mention of misadventure at the time of the procedure; E66.01 Morbid (severe) obesity due to excess calories; Z21 Asymptomatic human immunodeficiency virus [HIV] infection status; Z85.038 Personal history of other malignant neoplasm of large intestine; I25.2 Old myocardial infarction; Z99.2 Dependence on renal dialysis; Z90.49 Acquired absence of other specified parts of digestive tract; Z95.5 Presence of coronary angioplasty implant and graft; Z98.51 Tubal ligation status; Z79.899 Other long term (current) drug therapy; Z79.82 Long term (current) use of aspirin; Z79.4 Long term (current) use of insulin; Z68.37 Body mass index [BMI] 37.0-37.9, adult; Y92.89 Other specified places as the place of occurrence of the external cause
CPT/HCPCS: 36415; 36430; 71045; 74019; 74176; 76937; 80053; 81001; 82948; 83036; 83605; 83735; 84100; 84145; 85007; 85008; 85025; 85027; 85610; 85730; 86885; 86900; 86901; 86920; 87081; 87088; 93005; 96374; 96375; 97116; 97161; 99285; G0378; J0744; J1170; J1644; J1815; J2405; J2543; J3010; J7030; P9016; Q0163; Q9963